=== PATIENT | female | born 1970 | race Caucasian/White ===

== ENCOUNTER 2022-07-07 15:53 | Outpatient (CLI) | payer OTHER, SELFPAY ==
[2022-07-07 16:22] LABS: Hematocrit 29.1 % (35.0-49.0); Hemoglobin 10.4 g/dL (12.0-15.0); Mean Corpuscular HGB Conc 35.7 g/dL (32.0-36.0); Platelet Count Result 218 K/mm3 (150-420); Red Blood Count 2.67 M/mm3 (4.20-5.40); Red Cell Distribution Width 16.5 % (11.6-14.4)
[2022-07-07 16:30] LABS: White Blood Count 24.9 K/mm3 (4.8-10.8)
[2022-07-07 16:49] LABS: Alanine Aminotransferase 43 U/L (14-59); Albumin Level 2.6 g/dL (3.4-5.0); Alkaline Phosphatase 385 U/L (46-116); Anion Gap 11 mmol/L (8-16); Aspartate Amino Transferase 131 U/L (15-37); Bilirubin Direct 13.7 mg/dL (0-0.2); Bilirubin,Total 16.4 mg/dL (0.00-1.00); Blood Urea Nitrogen 10 mg/dL (7-18); Calcium 7.5 mg/dL (8.5-10.1); Carbon Dioxide 26 mmol/L (21-32); Chloride 89 mmol/L (98-108); Estimated Glomerular Filt Rate > 60; Glucose 105 mg/dL (70-99); Lipase 123 U/L (73-393); Osmolality Calculated 261 mOsm/kg (285-295); Potassium 2.8 mmol/L (3.5-5.1); Sodium 126 mmol/L (136-145); Total Protein 7.6 g/dL (6.4-8.2)
[2022-07-07 16:53] LABS: Ammonia < 10 umol/L (11-32); Amylase 728 U/L (25-115); GGT > 690.0 U/L (5-55)
[2022-07-07 17:07] LABS: Band Neutrophils Percent 9 % (0-6); Basophils Absolute Manual 0.24 K/mm3 (0-0.1); Basophils Percent Manual 1 % (0-1); Eosinophils Absolute Manual 0.49 K/mm3 (0.02-0.5); Eosinophils Percent Manual 2 % (1-6); Lymphocytes Absolute Manual 0.99 K/mm3 (1.1-4.5); Lymphocytes Percent Manual 4 % (18-44); Metamyelocytes Percent 2 %; Monocytes Absolute Manual 1.24 K/mm3 (0.1-0.90); Monocytes Percent Manual 5 % (3-9); Myelocytes Percent 1 %; Neutrophils Absolute Manual 21.16 K/mm3 (1.7-7.2); Neutrophils Percent Manual 76 % (46-73); Platelet Estimate Adequate (Adequate); Total Cells Counted 100
[2022-07-07 19:23] LABS: Appearance Urine Clear (Clear); Bilirubin Urine 3+ (Negative); Blood Urine Negative (Negative); Glucose Urine UA Trace (Negative); Ketones Urine Trace (Negative); Leukocyte Esterase Ur 1+ (Negative); Nitrate Urine Negative (Negative); Protein Urine Trace (Negative); Specific Grav Ur <= 1.005 (1.010-1.020)
[2022-07-07 19:34] LABS: Add Urine Microscopic? YES; Color Urine Dark Orange (Yellow); RBC Urine 0-2 /hpf (0-2)
[2022-07-07 19:35] LABS: Bacteria Urine 4+ /hpf; Squamous Epithelial Cell Urine None seen /hpf (Few); WBC Urine 16-20 /hpf (0-3)
[2022-07-12 03:09] LABS: Hepatitis A Antibody IgM Nonreactive; Hepatitis B Core Antibody Nonreactive (Nonreactive); Hepatitis B Surface Antigen Nonreactive (Nonreactive); Hepatitis C Signal to Cutoff 0.04 ratio (<1.00); Hepatitis C Virus Antibody Nonreactive (Nonreactive)
== END 2022-07-07 15:54 | disposition home or self-care (01) ==
LOC: CHSLAB 15:57
PROVIDERS: PCP Family Medicine; Visit Provider Family Medicine
DX: K70.0 Alcoholic fatty liver (principal)
CPT/HCPCS: 36415; 80053; 80074; 81001; 82140; 82150; 82248; 82977; 83690; 85025

== ENCOUNTER 2022-07-08 03:37 | Inpatient (IN) | payer OTHER, SELFPAY ==
[2022-07-08] VITALS (14 sets, daily range): BP systolic 90–110; BP diastolic 50–79; PULSE 86–112; RESP 14–22; TEMP 36.6–36.8; O2SAT 97–100; BMI 25.4
--- NOTE | ~2022-07-08 | NM_ITS ---
EXAMINATION: NM hepatobiliary wo pharm DATE: 07/08/2022 18:53 INDICATION: Abnormal liver function tests. COMPARISON: Ultrasound 07/08/2022, CT 07/08/2022 TECHNIQUE: 3 mCi Tc-99m mebrofenin (Choletec) was administered intravenously. Scintigraphic images o f the abdomen were obtained for one hour. Delayed images were obtained at 4 hours. FINDINGS: There is decreased clearance of radiotracer from the blood pool. There is homogeneous trace r uptake by the liver. At 4 hours, most of the activity remains in the blood pool and liver. There is faint activity in the bowel. IMPRESSION: 1. Severe hepatocellular dysfunction. Patency of the cystic duct cannot be assessed. Reviewed, dictated and finalized at location A. RANCE COORDINATOR IMPRESSION: 1. Severe hepatocellular dysfunction. Patency of the cystic duct cannot be ass essed.
--- NOTE | ~2022-07-08 | US_ITS ---
EXAMINATION: US abdomen limited DATE: 07/08/2022 08:25 INDICATION: Cirrhosis and cholecystitis. TECHNIQUE: Multiple grayscale and Doppler ultrasound images of the abdomen were obtained. COMPARISON: None FINDINGS: The pancreatic head and body are normal in appearance. The pancreatic tail is not visualized. Small amount of perihepatic ascites. Liver surface nodularity consistent with cirrhosis. There is increased parenchymal echogenicity and coarsened echotexture consistent with diffuse hepatic steatosis. No esdras er lesion identified. No intrahepatic biliary duct dilation suspected. Portal venous flow was seen i n the hepatopetal, normal direction and has normal Doppler waveform. There is edematous wall thickeni ng of the partially decompressed gallbladder. There is a small amount of hypoechoic sludge in the dep endent gallbladder. No shadowing cholelithiasis. The common bile duct measures 3 mm diameter which is normal. Sonographic Perdue sign was reported as negative by the [place].Visualized right kidney demonstrates normal contour and echogenicity with no hydronephrosis. IMPRESSION: 1. Combination of cirrhosis and diffuse hepatic steatosis. 2. Gallbladder wall thickening with small amount of sludge but no dilation of the gallbladder, cholel ithiasis or sonographic Perdue sign to suggest acute cholecystitis in the wall thickening is most lik pelon related to liver disease. Reviewed, dictated and finalized at location A. CE SUPERINTENDENT IMPRESSION: 1. Combination of cirrhosis and diffuse hepatic steatosis. 2. Gallbladder wall thickening with small amount of sludge but no dilation of t he gallbladder, cholelithiasis or sonographic Perdue sign to suggest acute chol ecystitis in the wall thickening is most likely related to liver disease.
--- NOTE | ~2022-07-08 | CT_ITS ---
EXAMINATION: CT abdomen pelvis w con DATE: 07/08/2022 05:46 INDICATION: Abdominal pain TECHNIQUE: Computed tomography (CT) of the abdomen and pelvis was performed with 100 mL Omnipaque-350 intravenous contrast. Automated exposure control and iterative reconstruction technique were employe d. The dose-length product was 392.74 mGy-cm. COMPARISON: 10/12/2015 FINDINGS: Linear discoid atelectasis in the bilateral lower lobes and lingula. Heart size is normal. No pericar dial or pleural effusion. Heterogeneous enhancement/attenuation pattern of the liver with subtle live r is is nodularity consistent with combination of cirrhosis and hepatic steatosis. There is a recanal ized umbilical vein along with a small splenorenal and paraesophageal collaterals consistent with por fly venous hypertension. Small amount of ascites scattered throughout the abdomen and pelvis. Gallbla dder wall thickening with mucosal hyperemia but without dilation to more specifically suggest acute c holecystitis. There is some heterogeneous attenuation within the gallbladder suggests the presence of sludge or stones. Spleen, pancreas and bilateral adrenal glands are normal. 2.0 cm macroscopic fat a ttenuation right renal angiomyolipoma. Left kidney is normal. There are couple diverticula along the sigmoid colon without adjacent inflammatory change to suggest diverticulitis. Normal appendix. No bow el obstruction. Bladder, uterus and bilateral adnexa are unremarkable. No abscess or free intraperito ceci gas. Mild thoracic and lumbar spondylosis. IMPRESSION: 1. Combination of cirrhosis and diffuse hepatic steatosis with likely secondary to small amount of as cites and portal venous hypertension with prominent recanalized umbilical vein and small splenorenal and paraesophageal collaterals. 2. Thickening of the gallbladder with mucosal hyperemia and suggestion of possible internal sludge ve rsus gallstones. Differential would include acute cholecystitis although the gallbladder is not dilat ed and this could also relate either chronic cholecystitis or cirrhosis. Correlate for left-sided and could consider further evaluation with ultrasound and/or HIDA scan to assess for either gallstones o r patency of the cystic duct respectively. Reviewed, dictated and finalized at location A. SCOPY TECHNICIAN IMPRESSION: 1. Combination of cirrhosis and diffuse hepatic steatosis with likely secondary to small amount of ascites and portal venous hypertension with prominent recan alized umbilical vein and small splenorenal and paraesophageal collaterals. 2. Thickening of the gallbladder with mucosal hyperemia and suggestion of possi ble internal sludge versus gallstones. Differential would include acute cholecy stitis although the gallbladder is not dilated and this could also relate eithe r chronic cholecystitis or cirrhosis. Correlate for left-sided and could consid er further evaluation with ultrasound and/or HIDA scan to assess for either gal lstones or patency of the cystic duct respectively.
--- NOTE | ~2022-07-08 | XR_ITS ---
EXAMINATION: XR chest 2V DATE: 07/08/2022 07:44 INDICATION: Pneumonia TECHNIQUE: PA and lateral views of the chest were obtained. COMPARISON: None FINDINGS: Bandlike discoid atelectasis in the right lower lobe. Additional streaky opacities at the lingula whi ch would favor atelectasis although differential would include pneumonia. No pleural effusion or pneu mothorax. The cardiomediastinal silhouette is normal. Visualized bones and soft tissues are unremarka ble. IMPRESSION: 1. Discoid atelectasis in the left lower lobe with additional opacities in the lingula which could re present additional atelectasis and/or pneumonia. Reviewed, dictated and finalized at location A. GER CONSUMER INSIGHTS IMPRESSION: 1. Discoid atelectasis in the left lower lobe with additional opacities in the lingula which could represent additional atelectasis and/or pneumonia.
[2022-07-08 05:09] LABS: Hemoglobin 10.3 g/dL (12.0-15.0); Mean Corpuscular HGB Conc 35.5 g/dl (32-36); Mean Corpuscular Hemoglobin 38.7 pg (26-34); Mean Platelet Volume 10.5 fl (7.4-10.4); Platelet Count Result 231 k/mm3 (150-375); Red Blood Count 2.66 M/mm3 (4.2-5.4); Red Cell Distribution Width 16.9 % (11.5-14.5); White Blood Count 28.1 K/mm3 (4.5-10.0)
--- NOTE | 2022-07-08 05:17 | ECG_ITS ---
Measurements Intervals [place] Rate: 86 P: -12 AR: 128 QRS: -17 QRSD: 89 T: -2 QT: 381 QTc: 456 Interpretive Statements SINUS RHYTHM DELAYED PRECORDIAL R/S TRANSITION VOLTAGE CRITERIA FOR LVH BORDERLINE T WAVE ABNORMALITY- INFERIOR LEADS BASELINE ARTIFACT- I, III, AVL, V5 BORDERLINE ECG NO PREVIOUS ECG AVAILABLE FOR COMPARISON Electronically Signed On 07-08-2022 7:23:14 PAPER LATCHER by Abhijeet Acosta D.O.
--- NOTE | 2022-07-08 05:18 | ED.ABDPAIN ---
HPI - Abdominal Pain General Chief Complaint: Abdominal Pain Stated Complaint: abdominal pain Time Seen by Provider: 07/08/22 04:51 History of Present Illness HPI narrative: 51-year-old female presented to the emergency department for evaluation of jaundice and distended abdomen. Patient states approximately 5 days ago she began having a distended abdomen and approximately 3 days ago she began to scleral jaundice. Patient did have labs drawn as outpatient and patient was told to present to the emergency department for elevated white blood cell count. Patient states she has been having abdominal distention with intermittent generalized abdominal pain. Patient also reports diarrhea. Patient denies any prior history of gallbladder disease. Patient does report history of drinking alcohol daily but denies any prior history of pancreatitis or cirrhosis. Related Data Allergies Allergy/AdvReac Type Severity Reaction Status Date / Time No Known Allergies Allergy Verified 07/08/22 05:29 Review of Systems Review of Systems: CONSTITUTIONAL: Denies fever, chills, or sweats. EYES: Denies visual changes, redness, or discharge. ENT: Denies rhinorrhea, congestion, sore throat, or otalgia. CARDIOVASCULAR: Denies chest pain, palpitations, or edema. RESPIRATORY: Denies cough or dyspnea. GASTROINTESTINAL: See HPI GENITOURINARY: Denies dysuria or hematuria. SKIN: See HPI MUSCULOSKELETAL: Denies back pain, joint pain, or myalgia. NEUROLOGIC: Denies headache, numbness, or weakness. Exam Narrative: APPEARANCE: Well appearing, no pain, no distress, well-nourished. HEAD: normocephalic, atraumatic. EYES: Scleral icterus NOSE: Normal no drainage EARS:TMS clear with good light reflex. THROAT: Pharynx clear, no exudate. NECK: Supple. No adenopathy, no masses. RESPIRATORY: Airway patent, respirations nonlabored. Clear to auscultation bilaterally, no rales, rhonchi, wheezing. CARDIOVASCULAR: Regular rate and rhythm without murmurs rubs or gallops. ABDOMINAL: Soft, distended with diffuse tenderness to palpation MUSCULOSKELETAL: Moves all extremities. Strength/ROM intact, No edema, No calf tenderness. NEURO: Alert. Cranial nerves II through XII intact. Grossly intact SKIN: Jaundice Course Course Emergency Course: CT was concerning for cirrhosis versus acute cholecystitis. Patient was started on Zosyn while in the ED. Blood and urine cultures are pending. Case was discussed with both GI and surgery. Case was also discussed with hospitalist and patient was accepted for admission. Patient was updated on the results of the work-up and plan for admission. All question concerns were addressed. Vital Signs Vital signs: Vital Signs Temperature 98.2 F 07/08/22 03:38 Pulse Rate 112 H 07/08/22 03:38 Respiratory Rate 22 H 07/08/22 03:38 Blood Pressure 110/79 07/08/22 03:38 Pulse Oximetry 100 07/08/22 03:38 Oxygen Delivery Room Air 07/08/22 03:38 Temperature 98.2 F 07/08/22 03:38 Pulse Rate 93 07/08/22 06:35 Respiratory Rate 15 07/08/22 06:35 Blood Pressure 100/71 07/08/22 06:35 Pulse Oximetry 100 07/08/22 06:35 Oxygen Delivery Room Air 07/08/22 03:38 MDM - Abdominal Pain Lab Data Result diagrams: 07/08/22 04:59 07/08/22 04:59 Labs: Lab Results 07/08/22 07/08/22 07/08/22 Range/Units 04:59 04:59 04:59 WBC 28.1 H (4.5-10.0) K/mm3 RBC 2.66 L (4.2-5.4) M/mm3 Hgb 10.3 L (12.0-15.0) g/dL Hct 29.0 L (37.0-47.0) % MCV 109.0 H (80-100) fl MCH 38.7 H (26-34) pg MCHC 35.5 (32-36) g/dl RDW 16.9 H (11.5-14.5) % Plt Count 231 (150-375) k/mm3 MPV 10.5 H (7.4-10.4) fl Immature Gran % (Auto) Not Reportable Neut % (Auto) Not Reportable Lymph % (Auto) Not Reportable [place] % (Auto) Not Reportable Eos % (Auto) Not Reportable Baso % (Auto) Not Reportable Lymph # (Auto) Not Reportable [place] # (Auto) No
[2022-07-08 05:23] LABS: Add Urine Microscopic? YES; Appearance Urine Turbid (Clear); Bilirubin Urine 3+ (Negative); Blood Urine Trace-intact (Negative); Color Urine Brown (Yellow); Glucose Urine UA Negative (Negative); Ketones Urine Negative (Negative); Leukocyte Esterase Ur 3+ LEU/UL (Negative); Nitrate Urine Negative (Negative); Protein Urine Trace mg/dL (Negative); Specific Grav Ur <= 1.005 (1.001-1.035); Urobilinogen Urine 0.2 mg/dL (<2.0)
[2022-07-08 05:28] LABS: Alanine Aminotransferase 45 U/L (6-35); Albumin Level 3.5 g/dL (3.5-5.1); Alkaline Phosphatase 369 U/L (38-126); Anion Gap 15 mmol/L (8-16); Aspartate Amino Transferase 158 U/L (14-36); Bilirubin Direct 10.9 mg/dL (0-0.3); Bilirubin,Total 16.8 mg/dL (0.2-1.3); Blood Urea Nitrogen 10 mg/dL (7-17); Calcium 7.4 mg/dL (8.4-10.2); Carbon Dioxide 27 mmol/L (22-30); Chloride 85 mmol/L (98-107); Estimated CRCL calculation 90 ml/min; Estimated Glomerular Filt Rate > 60; Glucose 93 mg/dL (65-110); Lipase 101 U/L (23-300); Potassium 2.9 mmol/L (3.4-5.0); Sodium 127 mmol/L (137-145)
[2022-07-08 05:34] LABS: Bacteria Urine 4+ /hpf; Mucus Urine Rare /lpf; RBC Urine 0-2 /hpf (0-2); Squamous Epithelial Cell Urine Rare /hpf (Few); WBC Urine >75 /hpf
[2022-07-08] MEDS: POTASSIUM CHLORIDE 20 MEQ PACKET (FOR LIQUID) 40 MEQ PO (06:02)
[2022-07-08 06:09] LABS: Band Neutrophils Percent 39 % (0-6); Eosinophils Absolute Manual 0.28 K/mm3 (0.02-0.5); Eosinophils Percent Manual 1 % (0-4); Hypochromasia 1+ (NORMAL); Lymphocytes Absolute Manual 3.09 K/mm3 (1.1-4.5); Metamyelocytes Percent 5 %; Monocytes Absolute Manual 0.84 K/mm3 (0.1-0.90); Monocytes Percent Manual 3 % (3-9); Myelocytes Percent 3 %; Neutrophils Absolute Manual 21.63 K/mm3 (1.7-7.2); Neutrophils Percent Manual 38 % (46-73); Platelet Estimate Adequate (Adequate); Schistocytes None Seen (NORMAL); Total Cells Counted 100
[2022-07-08 06:10] LABS: Macrocytosis 2+ (NORMAL)
--- NOTE | 2022-07-08 10:30 | ADMGEN ---
This patient, Margaret Bonilla, was admitted to Medical Room 260-01. Patient/family oriented to hospital policies and general routines including ID bracelet, bed and alarms, visiting hours, pain management, procedures, bathroom and other care routines, personal items, smoking policy, room service/diet, and visiting hours. Information on how to activate the Rapid Response Team has been discussed. Patient/Family are encouraged to report perceived risks to care and to ask questions if they do not understand what they are told or what they should do.
[2022-07-08] MEDS: SODIUM CHLORIDE 0.9% IV 1,000 ML 125 ML IV CONT ×2 (11:20→21:41)
--- NOTE | 2022-07-08 12:39 | PM.IMHP ---
H&P: HPI History of Present Illness Date/Time: 07/08/22 12:39 Chief Complaint: Jaundice Narrative: This is a 51-year-old female patient who states that she drinks 2 glasses of rum and choose a day. She quit drinking this past Monday. The patient stated that about 4 days ago she quit drinking alcohol just cold turkey. She noticed this past Monday that she was jaundice to the whites of her eyes. She denies any discomfort to her abdomen. She denies having any previous diagnosis of cyst cirrhosis of the liver. The patient denies having any alcohol withdrawals. Although she has some minimal tremors to her hands. Her is at the bedside. She stated that her physician recently put her on folic acid and thiamin. However she denies taking any Librium. Her white count is 28.1 and yesterday it had been 24.9. Her H&H is 10.3 and 29.0. Her sodium is 127 now on yesterday was 126. Potassium 2.9 today 2.8 yesterday. Calcium is low at 7.4. Total bilirubin 16.8. Direct bilirubin 10.9. AST is 158 ALT is 45 alkaline phosphatase is 369. Her ammonia level was less than 10. She has 3+ urine bilirubin. Patient's urine appears to be infectious. Hepatitis panel is pending. Abdominal pelvis CT read as the following 1. Combination of cirrhosis and diffuse hepatic steatosis with likely secondary to small amount of ascites and portal venous hypertension with prominent recanalized umbilical vein and small splenorenal and paraesophageal collaterals. 2. Thickening of the gallbladder with mucosal hyperemia and suggestion of possible internal sludge versus gallstones. Differential would include acute cholecystitis although the gallbladder is not dilated and this could also relate either chronic cholecystitis or cirrhosis. Correlate for left-sided and could consider further evaluation with ultrasound and/or HIDA scan to assess for either gallstones or patency of the cystic duct respectively. Chest x-ray was read is discoid atelectasis in the left lower lobe with additional opacities in the lingular which could represent additional atelectasis and/or pneumonia. Abdominal ultrasound was read as combination cirrhosis and diffuse hepatic steatosis. Gallbladder wall thickening with small amount of sludge but no dilatation of the gallbladder, cholelithiasis or sonographic Perdue sign to suggest acute cholecystitis in the wall thickening is most likely related to liver disease. The patient was started on IV fluids and Zosyn and given potassium in the emergency room. Surgery and GI have been consulted. A HIDA scan has been ordered. The patient is NPO at this time and is feeling hungry. Patient is being admitted to observation status on the date of service of 07/08/2022. Review of Systems Review of Systems: See HPI All systems reviewed & are unremarkable except as noted in HPI and below Constitutional: Constitutional: Reports as per HPI and Reports no additional constitutional complaints Eyes: Eyes: Reports as per HPI and Reports no additional eye complaints ENT: Reports system reviewed and no additional complaints, except as documented and Reports Normal hearing present Cardiovascular: Cardiovascular: Reports no additional cardiovascular complaints Respiratory: Respiratory: Reports no additional respiratory complaints and Reports no additional respiratory complaints Gastrointestinal: Gastrointestinal: Reports as per HPI and Reports no additional gastrointestinal complaints Musculoskeletal: Musculoskeletal: Reports no additional musculoskeletal complaints Integumentary/Breasts: Skin/Breast: Reports system reviewed and no additional complaints, except as docu and Reports as per HPI Neurologic: Reports system reviewed and no additional complaints, except as documented, Reports as per HPI and Reports Normal hearing present Psychiatric: Psychiatric: Reports no additional psychiatric complaints and Reports as per HPI Endocrine: Endocrine: Reports no additional endocrin
--- NOTE | 2022-07-08 12:51 | PM.CNGS ---
Assessment and Plan Assessment and plan (1) Jaundice: Code(s): R17 - Unspecified jaundice Status: Acute Assessment and Plan: The patient has had further workup including a CT scan of the abdomen and pelvis and subsequently an ultrasound this morning. There were no stone seen on CT scan although there was some hyperemia of the gallbladder mucosa and pop and some distention of the gallbladder. On ultrasound however there was only a mild amount of sludge and there does not appear to be significant signs of acute inflammation. In view of the patient's elevated white count I would agree with starting antibiotics. ( Per Catrachito Rey and has been started) however at this time I am not planning any surgical intervention so if okay with primary service would suggest starting the patient on clear liquids and advancing to a low-fat diet as tolerated. The patient is not complaining of nausea at this time. Further workup with regard to her cirrhosis as per primary service and GI. I would probably hold ordering a HIDA scan at least for a while in view of its limitations in patients with high bilirubin. (2) Neutrophilic leukocytosis: Code(s): D72.9 - Disorder of white blood cells, unspecified Status: Acute Assessment and Plan: Unknown etiology possibilities are acute cholecystitis related to her cirrhosis and biliary sludge that is seen in small amounts on ultrasound. Also a possibility of pneumonia per her chest x-ray in view of her atelectasis probably related to her abdominal bloating and shallow respirations. Another possibility will be UTI in view of her urine results from the ER. However, on the latter it may be aguilar to repeat an urinalysis with a clean-catch specimen or a catheterization in order to confirm the findings since the patient does not have overt symptoms of a UTI. (3) AA (alcohol abuse): Code(s): F10.10 - Alcohol abuse, uncomplicated Status: Acute Assessment and Plan: Discussed briefly with patient and her was in the room during my interview. She has stopped drinking over the last 4-5 days. I did discuss with her thoroughly the effects of alcohol on her liver and especially in view of the signs that she may also have hepatic steatosis. I have encouraged cessation of alcohol use. History of Present Illness Consult details Consult date: 07/08/22 Reason for consult: abdominal pain Requesting physician: Bakari Vargas MD Narrative: This is a pleasant 51-year-old white female who presented to the emergency department your at [place] the morning of 07/08/2022 for evaluation of jaundice and distended abdomen.? Patient states approximately 5 days ago she began having a distended abdomen and approximately 3 days ago she began noticing scleral jaundice.? Patient did have labs drawn as outpatient and patient was told to present to the emergency department for elevated white blood cell count and Bilirubin.? Patient states she has been having abdominal distention with intermittent generalized abdominal pain.? at the time of my interview the patient denied abdominal pain. Patient also reports that she did have a bowel movement today but that she has had intermittent loose stools over the last several days.. Patient denies any prior history of gallbladder disease.? She also states she does not associated to abdominal cramping pain with fatty or spicy foods at this time. Patient does report history of drinking alcohol daily Until she stopped when the symptoms above began. She however denies any prior history of pancreatitis or cirrhosis. on further history the patient states she did go to her PCPs office yesterday for an exam and states that he suspected cirrhosis after their discussion and visit. He called her at 2:30 a.m. this morning with her abnormal labs asked her to go to the emergency room. With further questioning the patient states that she typically drinks soda and r
[2022-07-08] MEDS: PIPERACILLIN/TAZOBACTAM SOD 4.5 GM in SODIUM CHLORIDE 0.9% IV 100 ML 200 ML IVPB (17:41)
[2022-07-08 18:12] LABS: Glucose Point of Care 78 mg/dl (65-105)
[2022-07-08 20:38] LABS: Anion Gap 15 mmol/L (8-16); Blood Urea Nitrogen 11 mg/dL (7-17); Carbon Dioxide 24 mmol/L (22-30); Chloride 93 mmol/L (98-107); Estimated CRCL calculation 90 ml/min; Estimated Glomerular Filt Rate > 60; Glucose 71 mg/dL (65-110); Sodium 132 mmol/L (137-145)
[2022-07-08] MEDS: POTASSIUM CHLORIDE 20 MEQ TABLET 40 MEQ PO (21:40)
[2022-07-09] VITALS (10 sets, daily range): BP systolic 90–101; BP diastolic 60–69; PULSE 78–90; RESP 16–24; TEMP 36.5–36.6; O2SAT 96
[2022-07-09] MEDS: PIPERACILLIN/TAZOBACTAM SOD 4.5 GM in SODIUM CHLORIDE 0.9% IV 100 ML 200 ML IVPB ×5 (00:04→23:05)
[2022-07-09 00:16] LABS: Glucose Point of Care 79 mg/dl (65-105)
[2022-07-09 06:19] LABS: Hemoglobin 9.7 g/dL (12.0-15.0); Mean Corpuscular HGB Conc 34.6 g/dl (32-36); Mean Corpuscular Hemoglobin 38.5 pg (26-34); Mean Corpuscular Volume 111.1 fl (80-100); Mean Platelet Volume 10.1 fl (7.4-10.4); Platelet Count Result 228 k/mm3 (150-375); Red Blood Count 2.52 M/mm3 (4.2-5.4); Red Cell Distribution Width 17.6 % (11.5-14.5); White Blood Count 21.2 K/mm3 (4.5-10.0)
[2022-07-09 06:22] LABS: Glucose Point of Care 71 mg/dl (65-105)
[2022-07-09] MEDS: SODIUM CHLORIDE 0.9% IV 1,000 ML 125 ML IV CONT ×2 (06:22→16:09)
[2022-07-09 06:25] LABS: Ammonia 10 umol/L (9-30)
[2022-07-09 06:27] LABS: Lactic Acid Reflex 0.8 mmol/L (0.7-2.0)
[2022-07-09 06:38] LABS: Alanine Aminotransferase 46 U/L (6-35); Albumin Level 2.9 g/dL (3.5-5.1); Alkaline Phosphatase 321 U/L (38-126); Anion Gap 13 mmol/L (8-16); Aspartate Amino Transferase 146 U/L (14-36); Blood Urea Nitrogen 8 mg/dL (7-17); Calcium 6.7 mg/dL (8.4-10.2); Carbon Dioxide 22 mmol/L (22-30); Chloride 100 mmol/L (98-107); Estimated CRCL calculation 109 ml/min; Estimated Glomerular Filt Rate > 60; Glucose 73 mg/dL (65-110); Lactate Dehydrogenase 204 U/L (120-246); Lipase 80 U/L (23-300); Magnesium 0.9 mg/dL (1.6-2.3); Potassium 3.3 mmol/L (3.4-5.0); Sodium 135 mmol/L (137-145)
[2022-07-09 07:08] LABS: Band Neutrophils Percent 19 % (0-6); Eosinophils Absolute Manual 0.42 K/mm3 (0.02-0.5); Eosinophils Percent Manual 2 % (0-4); Lymphocytes Absolute Manual 0.63 K/mm3 (1.1-4.5); Metamyelocytes Percent 1 %; Monocytes Absolute Manual 1.06 K/mm3 (0.1-0.90); Monocytes Percent Manual 5 % (3-9); Neutrophils Absolute Manual 18.86 K/mm3 (1.7-7.2); Neutrophils Percent Manual 70 % (46-73); Platelet Estimate Adequate (Adequate); Schistocytes None Seen (NORMAL); Total Cells Counted 100
[2022-07-09] MEDS: MAGNESIUM SULFATE 3GM/D5W100ML 3 GM/100 ML BAG IVPB (08:12)
[2022-07-09] MEDS: THIAMINE HCL 200 MG/2 ML VIAL 100 MG IV PUSH (08:15)
[2022-07-09] MEDS: FOLIC ACID 1 MG/0.2 ML INJ IV PUSH (08:15)
[2022-07-09] MEDS: POTASSIUM CHLORIDE 20 MEQ TABLET PO (08:15)
[2022-07-09] MEDS: POTASSIUM CHLORIDE 20 MEQ PACKET (FOR LIQUID) 40 MEQ PO (08:47)
[2022-07-09 12:41] LABS: Glucose Point of Care 126 mg/dl (65-105)
--- NOTE | 2022-07-09 13:48 | P.PNIM_ITS ---
Progress Note: A&P Assessment and Plan (1) Elevated liver enzymes: Code(s): R74.8 - Abnormal levels of other serum enzymes Status: Acute Assessment and Plan: patient presented with jaundice. LFTs markedly elevated on presentation with total bilirubin 16.4, AST 131, alk phos 385 * concerning for acute alcoholic hepatitis * viral hepatitis panel is pending * CT abdomen showed cirrhosis and diffuse hepatic steatosis with small amount of ascites portal venous hypertension * appreciate gastroenterology consultation * continue to trend LFTs (2) Cirrhosis: Code(s): K74.60 - Unspecified cirrhosis of liver Status: Acute Assessment and Plan: as above * appreciate gastroenterology consultation (3) UTI (urinary tract infection): Code(s): N39.0 - Urinary tract infection, site not specified Status: Acute Assessment and Plan: urinalysis abnormal on presentation * preliminary urine culture with >100,000 E coli * continue IV Zosyn at this time. Plan to deescalate antibiotics tomorrow if continued improvement, pending urine cultures (4) Abnormal gallbladder ultrasound: Code(s): R93.2 - Abnormal findings on diagnostic imaging of liver and biliary tract Status: Acute Assessment and Plan: CT on presentation showed gallbladder wall thickening concerning for gallstones vs acute cholecystitis * follow-up right upper quadrant ultrasound again revealed gallbladder wall thickening with small amount of sludge but no dilation of gallbladder, cholelithiasis, or findings to suggest acute cholecystitis * HIDA scan was completed, however this is unlikely to be useful given markedly elevated bilirubin * patient does not have signs / symptoms to suggest acute cholecystitis * appreciate gastroenterology consultation * continue to advance diet as tolerated. Advance to low fat diet today (5) Leukocytosis: Code(s): D72.829 - Elevated white blood cell count, unspecified Status: Acute Assessment and Plan: white blood cell count markedly elevated at 28.1 * suspect infectious etiology. Most likely due to suspected acute alcoholic hepatitis. Additionally, may be related to acute UTI. Less likely to be due to acute cholecystitis (see above). Less likely consideration is pneumonia which is suggested on CXR, however given clinical picture, findings most likely due to atelectasis and do not suspect acute pneumonia. * continue with IV Zosyn which provides adequate coverage for UTI and gal lbladder * plan to deescalate antibiotics tomorrow if continued improvement in white blood cell count and clinical picture (6) AA (alcohol abuse): Code(s): F10.10 - Alcohol abuse, uncomplicated Status: Acute Assessment and Plan: last drink 6 days prior to presentation * continue CIWA protocol. Scores are 0 today. Patient is at low risk for alcohol withdrawal if it is accurate that her last drink was 6 days ago * continue thiamine and folic acid * Librium as needed for withdrawal symptoms * continued alcohol avoidance is imperative and patient has been educated (7) Electrolyte disturbance: Code(s): E87.8 - Other disorders of electrolyte and fluid balance, not elsewhere classified Status: Acute Assessment and Plan: magnesium is 0.9 Potassium is 3.3 * administer 3 g IV magnesium sulfate * continue with daily potassium supplement 40 mEq * monitor BMP Subjective Date/time seen: 07/09/22 13:48 Interva
--- NOTE | 2022-07-09 13:48 | PM.IMPN ---
Progress Note: A&P Assessment and Plan (1) Elevated liver enzymes: Code(s): R74.8 - Abnormal levels of other serum enzymes Status: Acute Assessment and Plan: patient presented with jaundice. LFTs markedly elevated on presentation with total bilirubin 16.4, AST 131, alk phos 385 concerning for acute alcoholic hepatitis viral hepatitis panel is pending CT abdomen showed cirrhosis and diffuse hepatic steatosis with small amount of ascites portal venous hypertension appreciate gastroenterology consultation continue to trend LFTs (2) Cirrhosis: Code(s): K74.60 - Unspecified cirrhosis of liver Status: Acute Assessment and Plan: as above appreciate gastroenterology consultation (3) UTI (urinary tract infection): Code(s): N39.0 - Urinary tract infection, site not specified Status: Acute Assessment and Plan: urinalysis abnormal on presentation preliminary urine culture with >100,000 E coli continue IV Zosyn at this time. Plan to deescalate antibiotics tomorrow if continued improvement, pending urine cultures (4) Abnormal gallbladder ultrasound: Code(s): R93.2 - Abnormal findings on diagnostic imaging of liver and biliary tract Status: Acute Assessment and Plan: CT on presentation showed gallbladder wall thickening concerning for gallstones vs acute cholecystitis follow-up right upper quadrant ultrasound again revealed gallbladder wall thickening with small amount of sludge but no dilation of gallbladder, cholelithiasis, or findings to suggest acute cholecystitis HIDA scan was completed, however this is unlikely to be useful given markedly elevated bilirubin patient does not have signs / symptoms to suggest acute cholecystitis appreciate gastroenterology consultation continue to advance diet as tolerated. Advance to low fat diet today (5) Leukocytosis: Code(s): D72.829 - Elevated white blood cell count, unspecified Status: Acute Assessment and Plan: white blood cell count markedly elevated at 28.1 suspect infectious etiology. Most likely due to suspected acute alcoholic hepatitis. Additionally, may be related to acute UTI. Less likely to be due to acute cholecystitis (see above). Less likely consideration is pneumonia which is suggested on CXR, however given clinical picture, findings most likely due to atelectasis and do not suspect acute pneumonia. continue with IV Zosyn which provides adequate coverage for UTI and gallbladder plan to deescalate antibiotics tomorrow if continued improvement in white blood cell count and clinical picture (6) AA (alcohol abuse): Code(s): F10.10 - Alcohol abuse, uncomplicated Status: Acute Assessment and Plan: last drink 6 days prior to presentation continue CIWA protocol. Scores are 0 today. Patient is at low risk for alcohol withdrawal if it is accurate that her last drink was 6 days ago continue thiamine and folic acid Librium as needed for withdrawal symptoms continued alcohol avoidance is imperative and patient has been educated (7) Electrolyte disturbance: Code(s): E87.8 - Other disorders of electrolyte and fluid balance, not elsewhere classified Status: Acute Assessment and Plan: magnesium is 0.9 Potassium is 3.3 administer 3 g IV magnesium sulfate continue with daily potassium supplement 40 mEq monitor BMP Subjective Date/time seen: 07/09/22 13:48 Interval history: Date of service: 07/09/2022 Margaret Bonilla is a 51-year-old female with a history of alcohol abuse who is seen in follow-up for cirrhosis and elevated liver enzymes. She states that she is starting to feel better today. She had abdominal cramping overnight but this has resolved this morning. She does endorse abdominal bloating. No abdominal pain. She had a bowel movement today that she states was greenish in color, soft,
[2022-07-09 14:23] LABS: Magnesium 1.8 mg/dL (1.6-2.3)
--- NOTE | 2022-07-09 14:41 | WPDGICN ---
Assessment and Plan Assessment and plan (1) Alcoholic hepatitis: Code(s): K70.10 - Alcoholic hepatitis without ascites Status: Acute Assessment and Plan: severe alcoholic hepatitis but can not calculate MELD or discriminant function- we need to order INR will complete full work up of other chronic liver disease but most likely is alcohol related, also found to have cirrhosis will start trental- if nausea will discontinue explained in detail that she has cirrhosis and potential future complications, she will need to quit altogether, AA meeting and probably also to establish with sap abap developer as outpatient EGD as outpatient to assess if varices (2) Cirrhosis: Code(s): K74.60 - Unspecified cirrhosis of liver Status: Acute Assessment and Plan: probably from alcohol will order blood work to rule out other conditions (3) AA (alcohol abuse): Code(s): F10.10 - Alcohol abuse, uncomplicated Status: Acute Assessment and Plan: thiamine, mvi encourage to eat (4) Elevated liver enzymes: Code(s): R74.8 - Abnormal levels of other serum enzymes Status: Acute (5) Leukocytosis: Code(s): D72.829 - Elevated white blood cell count, unspecified Status: Acute Assessment and Plan: probably from alcoholic hepatitis (6) Electrolyte disturbance: Code(s): E87.8 - Other disorders of electrolyte and fluid balance, not elsewhere classified Status: Acute Assessment and Plan: malnutrition and also risk of refeeding syndrome (7) Abnormal gallbladder ultrasound: Code(s): R93.2 - Abnormal findings on diagnostic imaging of liver and biliary tract Status: Acute Assessment and Plan: this is probably from cirrhosis and alcoholic hepatitis no obvious sign of acute cholecystitis (8) UTI (urinary tract infection): Code(s): N39.0 - Urinary tract infection, site not specified Status: Acute Assessment and Plan: on abx GI Consult Note Consult date/time: 07/09/22 14:41 Reason for consult: alcoholic hepatitis, new diagnosis cirrhosis HPI: Margaret Bonilla is a 51 year old female who came to the ER for evaluation of jaundice and distended abdomen.?She is an alcoholic for several years drinking daily at least 2 glass of run. Patient states approximately 5 days ago she began having a distended abdomen and approximately 3 days ago she began noticing scleral jaundice.? Patient did have labs drawn as outpatient and patient was told to present to the emergency department for elevated white blood cell count and bilirubin.?Her white count wsa elevated 28k, H&H is 10.3 and 29.0.? Sodium is 127, Potassium 2.9, Total bilirubin 16.8.? Direct bilirubin 10.9.? AST is 158 ALT is 45 alkaline phosphatase is 369.? Her ammonia level was less than 10.? She has 3+ urine bilirubin.? Patient's urine appears to be infectious and started on antibiotics. Hepatitis panel is pending.? Abdominal pelvis CT reviewed and showed- Combination of cirrhosis and diffuse hepatic steatosis with likely secondary to small amount of ascites and portal venous hypertension with prominent recanalized umbilical vein and small splenorenal and paraesophageal collaterals. Thickening of the gallbladder with mucosal hyperemia and suggestion of possible internal sludge versus gallstones. Differential would include acute cholecystitis although the gallbladder is not dilated and this could also relate either chronic cholecystitis or cirrhosis. She denies fever and unaware of previous liver disease however she has not seen a doctor in regular basis. Review of Systems Review of Systems: All systems reviewed & are unremarkable except as noted in HPI and below (HPI) Constitutional: Constitutional: Reports as per HPI, Denies chills and Denies fever(s) Eyes: Eyes: Reports no additional eye complaints ENT: Reports Normal hearing present and Denies dizziness Cardiovascular: Cardiovascular:
[2022-07-09] MEDS: HYDROmorphone HCL INJ (*CRX) 1 MG/ML SYR 0.5 MG IV PUSH (15:43)
[2022-07-09] MEDS: PENTOXIFYLLINE 400 MG TABCR PO (17:04)
[2022-07-09 19:12] LABS: Glucose Point of Care 102 mg/dl (65-105)
--- NOTE | 2022-07-09 20:43 | PM.PNGS ---
Progress Note: A&P Assessment and Plan (1) Alcoholic hepatitis: Code(s): K70.10 - Alcoholic hepatitis without ascites Status: Acute Assessment and Plan: This appears to be the main problem for the patient. (2) AA (alcohol abuse): Code(s): F10.10 - Alcohol abuse, uncomplicated Status: Acute (3) Abnormal gallbladder ultrasound: Code(s): R93.2 - Abnormal findings on diagnostic imaging of liver and biliary tract Status: Acute Assessment and Plan: The only abnormality may be related to cirrhosis and some thickening because of cirrhosis. There was exit Linda Thatch of a small amount of sludge which hopefully would clear his aunt's the patient stays on a low-fat diet. In view of her liver injury she has not a candidate for Actigall. at this time I would recommend the patient stay on a low-fat side of her diet. Agree with GI recommendations. For now will sign off since patient not a surgical candidate. (4) Jaundice: Code(s): R17 - Unspecified jaundice Status: Acute Assessment and Plan: Suspected to be secondary to #1. Above. Subjective Subjective Date/Time Seen: 07/09/22 18:43 Patient reports: no new complaints, feels better and tolerating liquids well Interval history: The patient states she has talked to the GI physician and they believe her problems are most likely related to the previous alcohol intake. She states she is willing to completely stop alcohol intake and try to let her liver recover. Review of Systems Review of Systems: All systems reviewed & are unremarkable except as noted in HPI and below Constitutional: Constitutional: Reports as per HPI, Denies chills and Denies fever(s) Cardiovascular: Cardiovascular: Denies chest pain and Denies dyspnea Respiratory: Respiratory: Reports no additional respiratory complaints and Denies dyspnea Gastrointestinal: Gastrointestinal: Reports as per HPI and Denies bloating Musculoskeletal: Musculoskeletal: Reports no additional musculoskeletal complaints Neurologic: Denies memory loss Psychiatric: Psychiatric: Denies anxiety and Denies memory loss Exam Eyes: Sclera: scleral abnormality bilateral ( significantly jaundiced) GI: Inspection: normal to inspection GI Palp: Yes Soft to palpation Auscultation: normal bowel sounds Other: skin of the abdomen significantly yellow. Objective Data Vital Signs Vital Signs: Vital Signs - 24 hr 07/08/22 23:21 07/09/22 00:00 07/09/22 04:00 Temperature Pulse Rate 88 80 Respiratory Rate Blood Pressure 107/70 Pulse Oximetry Oxygen Delivery 07/09/22 05:25 07/09/22 08:00 07/09/22 08:00 Temperature 36.5 C Pulse Rate 84 90 Respiratory Rate 16 Blood Pressure 90/60 L Pulse Oximetry 96 Oxygen Delivery Room Air 07/09/22 12:00 07/09/22 14:33 07/09/22 16:00 Temperature 36.5 C Pulse Rate 89 87 89 Respiratory Rate 24 H Blood Pressure 99/69 L Pulse Oximetry 96 Oxygen Delivery Intake/Output Intake/Output: Intake & Output 07/06/22 07/07/22 07/08/22 07/09/22 23:59 23:59 23:59 23:59 Intake Total 1150 4050 Output Total 300 650 Balance 850 3400 Meds/Results Medications: Active Medications Generic Name Dose Route Start Last Admin Trade Name Freq PRN Reason Stop Dose Admin Chlordiazepoxide HCl 25 mg 07/08/22 13:56 Chlordiazepoxide (*Crx) 25 Mg Capsule PO Q6H PRN Withdrawal Folic Acid 1 mg 07/09/22 09:00 07/09/22 08:15 Folic Acid 1 Mg/0.2 Ml Inj IV PUSH 1 mg QAM CYNDY Administration Hydromorphone HCl 0.5 mg 07/08/22 07:36 07/09/22 15:43 Hydromorphone Hcl Inj (*Crx) 1 Mg/Ml Syr IV PUSH 0.5 mg Q4H PRN Administration Pain Rated 7-10 Sodium Chloride 1,000 mls @ 75 mls/hr 07/08/22 07:40 07/09/22 16:09 Normal Saline Iv IV CONT 125 mls/hr .[id number] CYNDY Administration Piperacillin Sod/Tazobactam 100 mls @ 200 mls/hr 07/08/22 18:00
[2022-07-09 23:09] LABS: Glucose Point of Care 110 mg/dl (65-105)
[2022-07-10] VITALS (10 sets, daily range): BP systolic 100–108; BP diastolic 58–75; PULSE 79–107; RESP 16; TEMP 36.1–36.7; O2SAT 94–100
[2022-07-10] MEDS: SODIUM CHLORIDE 0.9% IV 1,000 ML 125 ML IV CONT (01:13)
[2022-07-10] MEDS: PIPERACILLIN/TAZOBACTAM SOD 4.5 GM in SODIUM CHLORIDE 0.9% IV 100 ML 200 ML IVPB ×2 (05:09→11:23)
[2022-07-10 05:29] LABS: Glucose Point of Care 93 mg/dl (65-105)
[2022-07-10 05:43] LABS: Basophils Percent Auto 0.1 % (0.2-1.2); Eosinophils Absolute Auto 0.5 K/mm3 (0-0.3); Eosinophils Percent Auto 2.3 % (0-4.4); Hematocrit 26.3 % (37.0-47.0); Hemoglobin 9.3 g/dL (12.0-15.0); Immature Granulocyte Absolute 1.08 K/mm3 (0.00-0.031); Immature Granulocyte Percent A 4.8 % (0-0.5); Lymphocytes Absolute Auto 1.04 K/mm3 (0.9-3.2); Lymphocytes Percent Auto 4.7 % (18.3-44.2); Mean Corpuscular HGB Conc 35.4 g/dl (32-36); Mean Corpuscular Hemoglobin 39.2 pg (26-34); Mean Platelet Volume 9.8 fl (7.4-10.4); Monocytes Absolute Auto 2.1 K/mm3 (0.1-0.6); Monocytes Percent Auto 9.2 % (2.6-8.5); Neutrophils Absolute Auto 17.6 K/mm3 (1.3-6.7); Neutrophils Percent Auto 78.9 % (45.5-73.1); Nucleated Red Blood Cells Perc 0.1 % (0.0-0.2); Platelet Count Result 258 k/mm3 (150-375); Red Blood Count 2.37 M/mm3 (4.2-5.4); Red Cell Distribution Width 17.9 % (11.5-14.5); White Blood Count 22.4 K/mm3 (4.5-10.0)
[2022-07-10 05:56] LABS: Alanine Aminotransferase 42 U/L (6-35); Albumin Level 2.6 g/dL (3.5-5.1); Alkaline Phosphatase 287 U/L (38-126); Anion Gap 13 mmol/L (8-16); Aspartate Amino Transferase 137 U/L (14-36); Bilirubin,Total 15.3 mg/dL (0.2-1.3); Blood Urea Nitrogen 4 mg/dL (7-17); Calcium 6.1 mg/dL (8.4-10.2); Carbon Dioxide 20 mmol/L (22-30); Chloride 101 mmol/L (98-107); Estimated CRCL calculation 109 ml/min; Estimated Glomerular Filt Rate > 60; Glucose 89 mg/dL (65-110); Magnesium 1.5 mg/dL (1.6-2.3); Potassium 2.9 mmol/L (3.4-5.0); Sodium 134 mmol/L (137-145)
[2022-07-10 06:01] LABS: INR 2.8; Prothrombin Time 28.8 Seconds (11.1-14.7)
[2022-07-10 06:42] LABS: Anisocytosis 1+ (NORMAL); Platelet Estimate Adequate (Adequate); Target Cells 1+ (NORMAL)
[2022-07-10 07:44] LABS: Schistocytes None Seen (NORMAL)
[2022-07-10] MEDS: MAGNESIUM SULFATE 3GM/D5W100ML 3 GM/100 ML BAG IVPB (08:32)
[2022-07-10] MEDS: CALCIUM CARBONATE (OSCAL) 500 MG TABLET PO ×2 (08:34→16:29)
[2022-07-10] MEDS: THIAMINE HCL 200 MG/2 ML VIAL 100 MG IV PUSH (08:34)
[2022-07-10] MEDS: FOLIC ACID 1 MG/0.2 ML INJ IV PUSH (08:35)
[2022-07-10] MEDS: POTASSIUM CHLORIDE 20 MEQ PACKET (FOR LIQUID) 40 MEQ PO (08:35)
[2022-07-10] MEDS: PENTOXIFYLLINE 400 MG TABCR PO ×3 (08:35→16:29)
[2022-07-10 08:45] LABS: Phosphorus 2.5 mg/dL (2.5-4.5)
[2022-07-10] MEDS: POTASSIUM CHLORIDE INJ 40 MEQ in SODIUM CHLORIDE 0.9% IV 500 ML 130 MEQ IVPB (09:44)
[2022-07-10] MEDS: HYDROmorphone HCL INJ (*CRX) 1 MG/ML SYR 0.5 MG IV PUSH (09:55)
[2022-07-10 11:40] LABS: Glucose Point of Care 91 mg/dl (65-105)
--- NOTE | 2022-07-10 12:56 | WPDGIPROGNO ---
Progress Note: A&P Assessment and Plan (1) Alcoholic hepatitis: Code(s): K70.10 - Alcoholic hepatitis without ascites Status: Acute Assessment and Plan: severe alcoholic hepatitis- DF 83 and meld 19- risk for complications and mortality encourage to eat and added nutriotinal supplement stared on trental work up to rule out other chronic liver conditions pending, most likely alcohol related will need to follow-up with hepatology (2) Cirrhosis: Code(s): K74.60 - Unspecified cirrhosis of liver Status: Acute Assessment and Plan: egd as outpatient to assess if varices, etc (3) Neutrophilic leukocytosis: Code(s): D72.9 - Disorder of white blood cells, unspecified Status: Acute Assessment and Plan: probably from etoh hepatitis empirically on abx (4) Jaundice: Code(s): R17 - Unspecified jaundice Status: Acute (5) Elevated liver enzymes: Code(s): R74.8 - Abnormal levels of other serum enzymes Status: Acute Assessment and Plan: monitor hepatitis panel pending (6) Bloating: Code(s): R14.0 - Abdominal distension (gaseous) Status: Acute Subjective Date/time seen: 07/10/22 12:56 Interval history: feeling bloated but otherwise she is eating and denies nausea Review of Systems Review of Systems: All systems reviewed & are unremarkable except as noted in HPI and below Exam Const: General: comfortable HENMT: Face/Nose/Sinus: Normal nares present Eyes: Other: icteric sclerae Neck: Neck: supple Resp: Auscultation: clear to auscultation bilaterally Cardio: Rate: regular rate GI: Inspection: distended GI Palp: Yes Soft to palpation and No Guarding due to palpation present (GI) Auscultation: normal bowel sounds Skin: Other: jaundice Neuro: Speech: normal speech Motor exam (neuro): 5/5 motor strength present throughout Extrem: General: normal to inspection Psych: Affect: normal affect Objective Data Vital Signs Vital Signs: Vital Signs - 24 hr 07/09/22 14:33 07/09/22 16:00 07/09/22 20:48 Temperature 97.7 F 98 F Pulse Rate 87 89 81 Respiratory Rate 24 H 20 Blood Pressure 99/69 L 101/60 Pulse Oximetry 96 96 Oxygen Delivery 07/09/22 20:00 07/09/22 20:20 07/10/22 00:00 Temperature Pulse Rate 78 87 Respiratory Rate Blood Pressure 101/60 Pulse Oximetry Oxygen Delivery 07/10/22 00:00 07/10/22 04:00 07/10/22 04:00 Temperature Pulse Rate 104 H Respiratory Rate Blood Pressure 101/60 101/60 Pulse Oximetry Oxygen Delivery 07/10/22 05:37 07/10/22 07:48 07/10/22 08:00 Temperature 98.1 F Pulse Rate 90 107 H Respiratory Rate 16 Blood Pressure 101/58 L Pulse Oximetry 98 Oxygen Delivery Room Air Intake/Output Intake/Output: Intake & Output 07/07/22 07/08/22 07/09/22 07/10/22 23:59 23:59 23:59 23:59 Intake Total 1150 4350 1960 Output Total 300 650 650 Balance 850 3700 1310 Meds/Results Medications: Active Medications Generic Name Dose Route Start Last Admin Trade Name Freq PRN Reason Stop Dose Admin Calcium Carbonate 500 mg 07/10/22 08:00 07/10/22 08:34 Calcium Carbonate (Oscal) 500 Mg Tablet PO 500 mg BIDWM CYNDY Administration Chlordiazepoxide HCl 25 mg 07/08/22 13:56 Chlordiazepoxide (*Crx) 25 Mg Capsule PO Q6H PRN Withdrawal Folic Acid 1 mg 07/09/22 09:00 07/10/22 08:35 Folic Acid 1 Mg/0.2 Ml Inj IV PUSH 1 mg QAM CYNDY Administration Hydromorphone HCl 0.5 mg 07/08/22 07:36 07/10/22 09:55 Hydromorphone Hcl Inj (*Crx) 1 Mg/Ml Syr IV PUSH 0.5 mg Q4H PRN Administration Pain Rated 7-10 Piperacillin Sod/Tazobactam 100 mls @ 200 mls/hr 07/08/22 18:00 07/10/22 11:23 Sod 4.5 gm/ Sodium Chloride IVPB 200 mls/hr Q6HR CYNDY Administration Lorazepam 2 mg 07/08/22 13:56 Lorazepam Inj (*Crx) 2 Mg/Ml Vial IV PUSH Q4H PRN Withdrawal Ondanset
--- NOTE | 2022-07-10 15:29 | P.PNIM_ITS ---
Progress Note: A&P Assessment and Plan (1) Alcoholic hepatitis: Code(s): K70.10 - Alcoholic hepatitis without ascites Status: Acute Assessment and Plan: Findings consistent with alcoholic hepatitis. Meld score is 19. * Continue pentoxifylline per GI recommendations. * She will need referral to hepatology as an outpatient. (2) Elevated liver enzymes: Code(s): R74.8 - Abnormal levels of other serum enzymes Status: Acute Assessment and Plan: patient presented with jaundice. LFTs markedly elevated on presentation with total bilirubin 16.4, AST 131, alk phos 385 * secondary to acute alcoholic hepatitis * viral hepatitis panel is pending * CT abdomen showed cirrhosis and diffuse hepatic steatosis with small amount of ascites and portal venous hypertension * appreciate gastroenterology consultation * continue to trend LFTs (3) Cirrhosis: Code(s): K74.60 - Unspecified cirrhosis of liver Status: Acute Assessment and Plan: as above * appreciate gastroenterology consultation (4) UTI (urinary tract infection): Code(s): N39.0 - Urinary tract infection, site not specified Status: Acute Assessment and Plan: urinalysis abnormal on presentation * urine culture with >100,000 E coli * Stop Zosyn. Transition to ceftriaxone (5) Abnormal gallbladder ultrasound: Code(s): R93.2 - Abnormal findings on diagnostic imaging of liver and biliary tract Status: Acute Assessment and Plan: CT on presentation showed gallbladder wall thickening concerning for gallstones vs acute cholecystitis * follow-up right upper quadrant ultrasound again revealed gallbladder wall thickening with small amount of sludge but no dilation of gallbladder, cholelithiasis, or findings to suggest acute cholecystitis * HIDA scan was completed, however this is unlikely to be useful given markedly elevated bilirubin * patient does not have signs / symptoms to suggest acute cholecystitis * seen in consultation by general surgery. Findings not felt to be consistent with acute cholecystitis and no plans for further evaluation/intervention * continue low fat diet (6) Leukocytosis: Code(s): D72.829 - Elevated white blood cell count, unspecified Status: Acute Assessment and Plan: white blood cell count markedly elevated at 28.1 * suspect infectious etiology. Most likely due to suspected acute alcoholic hepatitis. Additionally, may be related to acute UTI. Less likely consideration is pneumonia which is suggested on CXR, however given clinical picture, findings most likely due to atelectasis and do not suspect pneumonia. * Zosyn stopped, transition to Ceftriaxone (7) AA (alcohol abuse): Code(s): F10.10 - Alcohol abuse, uncomplicated Status: Acute Assessment and Plan: last drink 6 days prior to presentation * continue CIWA protocol. Scores are 0 today. Patient is at low risk for alcohol withdrawal given duration since last drink * continue thiamine and folic acid * Librium as needed for withdrawal symptoms * continued alcohol avoidance is imperative and patient has been educated (8) Electrolyte disturbance: Code(s): E87.8 - Other disorders of electrolyte and fluid balance, not elsewhere classified Status: Acute Assessment and Plan: magnesium is 1.5 Potassium is 2.9. Calcium is 7.6 (corrected for hypoalbunemia) * administer 3 g IV magnesium sulfate and 40 mEq IV KCl * continue with daily potass
--- NOTE | 2022-07-10 15:29 | PM.IMPN ---
Progress Note: A&P Assessment and Plan (1) Alcoholic hepatitis: Code(s): K70.10 - Alcoholic hepatitis without ascites Status: Acute Assessment and Plan: Findings consistent with alcoholic hepatitis. Meld score is 19. Continue pentoxifylline per GI recommendations. She will need referral to hepatology as an outpatient. (2) Elevated liver enzymes: Code(s): R74.8 - Abnormal levels of other serum enzymes Status: Acute Assessment and Plan: patient presented with jaundice. LFTs markedly elevated on presentation with total bilirubin 16.4, AST 131, alk phos 385 secondary to acute alcoholic hepatitis viral hepatitis panel is pending CT abdomen showed cirrhosis and diffuse hepatic steatosis with small amount of ascites and portal venous hypertension appreciate gastroenterology consultation continue to trend LFTs (3) Cirrhosis: Code(s): K74.60 - Unspecified cirrhosis of liver Status: Acute Assessment and Plan: as above appreciate gastroenterology consultation (4) UTI (urinary tract infection): Code(s): N39.0 - Urinary tract infection, site not specified Status: Acute Assessment and Plan: urinalysis abnormal on presentation urine culture with >100,000 E coli Stop Zosyn. Transition to ceftriaxone (5) Abnormal gallbladder ultrasound: Code(s): R93.2 - Abnormal findings on diagnostic imaging of liver and biliary tract Status: Acute Assessment and Plan: CT on presentation showed gallbladder wall thickening concerning for gallstones vs acute cholecystitis follow-up right upper quadrant ultrasound again revealed gallbladder wall thickening with small amount of sludge but no dilation of gallbladder, cholelithiasis, or findings to suggest acute cholecystitis HIDA scan was completed, however this is unlikely to be useful given markedly elevated bilirubin patient does not have signs / symptoms to suggest acute cholecystitis seen in consultation by general surgery. Findings not felt to be consistent with acute cholecystitis and no plans for further evaluation/intervention continue low fat diet (6) Leukocytosis: Code(s): D72.829 - Elevated white blood cell count, unspecified Status: Acute Assessment and Plan: white blood cell count markedly elevated at 28.1 suspect infectious etiology. Most likely due to suspected acute alcoholic hepatitis. Additionally, may be related to acute UTI. Less likely consideration is pneumonia which is suggested on CXR, however given clinical picture, findings most likely due to atelectasis and do not suspect pneumonia. Zosyn stopped, transition to Ceftriaxone (7) AA (alcohol abuse): Code(s): F10.10 - Alcohol abuse, uncomplicated Status: Acute Assessment and Plan: last drink 6 days prior to presentation continue CIWA protocol. Scores are 0 today. Patient is at low risk for alcohol withdrawal given duration since last drink continue thiamine and folic acid Librium as needed for withdrawal symptoms continued alcohol avoidance is imperative and patient has been educated (8) Electrolyte disturbance: Code(s): E87.8 - Other disorders of electrolyte and fluid balance, not elsewhere classified Status: Acute Assessment and Plan: magnesium is 1.5 Potassium is 2.9. Calcium is 7.6 (corrected for hypoalbunemia) administer 3 g IV magnesium sulfate and 40 mEq IV KCl continue with daily potassium supplement 40 mEq begin Oscal 500 mg BID monitor BMP Subjective Date/time seen: 07/10/22 15:29 Interval history: Date of service: 07/10/2022 Margaret Bonilla is a 51-year-old female with a history of alcohol abuse who is seen in follow-up for cirrhosis and elevated liver enzymes. She is feeling well today. Her only complaint is rather severe abdominal bloating that she states is worse today. She rat
[2022-07-10] MEDS: ONDANSETRON INJ 4 MG/2 ML VIAL IV PUSH (16:39)
[2022-07-10 19:35] LABS: Glucose Point of Care 116 mg/dl (65-105)
[2022-07-10 23:03] LABS: Glucose Point of Care 100 mg/dl (65-105)
[2022-07-11] VITALS (10 sets, daily range): BP systolic 96–106; BP diastolic 55–68; PULSE 77–97; RESP 18–20; TEMP 36.5–37.2; O2SAT 96–97
[2022-07-11 05:54] LABS: Glucose Point of Care 107 mg/dl (65-105)
[2022-07-11 05:54] LABS: Glucose Point of Care 69 mg/dl (65-105)
[2022-07-11 06:44] LABS: Basophils Percent Auto 0.1 % (0.2-1.2); Eosinophils Absolute Auto 0.5 K/mm3 (0-0.3); Eosinophils Percent Auto 2.1 % (0-4.4); Hematocrit 27.5 % (37.0-47.0); Hemoglobin 9.7 g/dL (12.0-15.0); Immature Granulocyte Absolute 1.02 K/mm3 (0.00-0.031); Immature Granulocyte Percent A 4.4 % (0-0.5); Lymphocytes Absolute Auto 1.42 K/mm3 (0.9-3.2); Lymphocytes Percent Auto 6.1 % (18.3-44.2); Mean Corpuscular HGB Conc 35.3 g/dl (32-36); Mean Corpuscular Hemoglobin 38.3 pg (26-34); Mean Corpuscular Volume 108.7 fl (80-100); Mean Platelet Volume 9.8 fl (7.4-10.4); Monocytes Absolute Auto 1.8 K/mm3 (0.1-0.6); Monocytes Percent Auto 7.7 % (2.6-8.5); Neutrophils Absolute Auto 18.6 K/mm3 (1.3-6.7); Neutrophils Percent Auto 79.6 % (45.5-73.1); Nucleated Red Blood Cells Perc 0.2 % (0.0-0.2); Platelet Count Result 319 k/mm3 (150-375); Red Blood Count 2.53 M/mm3 (4.2-5.4); White Blood Count 23.4 K/mm3 (4.5-10.0)
[2022-07-11 07:33] LABS: Alanine Aminotransferase 55 U/L (6-35); Albumin Level 2.7 g/dL (3.5-5.1); Alkaline Phosphatase 322 U/L (38-126); Anion Gap 9 mmol/L (8-16); Aspartate Amino Transferase 164 U/L (14-36); Bilirubin,Total 16.8 mg/dL (0.2-1.3); Blood Urea Nitrogen 3 mg/dL (7-17); Calcium 6.6 mg/dL (8.4-10.2); Carbon Dioxide 21 mmol/L (22-30); Chloride 103 mmol/L (98-107); Estimated CRCL calculation 109 ml/min; Estimated Glomerular Filt Rate > 60; Glucose 80 mg/dL (65-110); Phosphorus 1.8 mg/dL (2.5-4.5); Potassium 3.1 mmol/L (3.4-5.0); Sodium 133 mmol/L (137-145)
[2022-07-11] MEDS: FOLIC ACID 1 MG/0.2 ML INJ IV PUSH (08:42)
[2022-07-11] MEDS: PENTOXIFYLLINE 400 MG TABCR PO ×3 (08:42→17:42)
[2022-07-11] MEDS: CALCIUM CARBONATE (OSCAL) 500 MG TABLET PO ×2 (08:42→17:42)
[2022-07-11] MEDS: VITAMIN B COMPLEX CAPSULE 1 CAP PO ×3 (08:42→17:42)
[2022-07-11] MEDS: POTASSIUM/PHOSPHORUS/SODIUM 1.5 GM PACKET 1 PACKET PO ×4 (08:42→19:45)
[2022-07-11] MEDS: POTASSIUM CHLORIDE 20 MEQ PACKET (FOR LIQUID) 40 MEQ PO (08:42)
[2022-07-11] MEDS: MULTIVITAMINS THERAPEUTIC TAB (*BKC) 1 TABLET PO (08:42)
[2022-07-11] MEDS: THIAMINE HCL 100 MG TABLET PO ×2 (08:42→17:42)
[2022-07-11] MEDS: CALCIUM GLUC 1,000 MG/NS 50 ML 1,000 MG/50 ML BAG 100 MG IVPB (08:43)
[2022-07-11] MEDS: THIAMINE HCL 200 MG/2 ML VIAL 100 MG IV PUSH (08:43)
[2022-07-11 09:00] LABS: Platelet Estimate Adequate (Adequate)
[2022-07-11 09:01] LABS: Anisocytosis 1+ (NORMAL); Target Cells 1+ (NORMAL)
[2022-07-11 10:38] LABS: Schistocytes None Seen (NORMAL)
[2022-07-11 12:21] LABS: Glucose Point of Care 113 mg/dl (65-105)
[2022-07-11] MEDS: HYDROmorphone HCL INJ (*CRX) 1 MG/ML SYR 0.5 MG IV PUSH ×2 (12:35→19:45)
[2022-07-11] MEDS: ONDANSETRON INJ 4 MG/2 ML VIAL IV PUSH (12:35)
--- NOTE | 2022-07-11 15:46 | P.PNIM_ITS ---
Progress Note: A&P Assessment and Plan (1) Alcoholic hepatitis: Code(s): K70.10 - Alcoholic hepatitis without ascites Status: Acute Assessment and Plan: Findings consistent with alcoholic hepatitis. Meld score is 19. * Continue pentoxifylline per GI recommendations. * She will need referral to hepatology as an outpatient. (2) Elevated liver enzymes: Code(s): R74.8 - Abnormal levels of other serum enzymes Status: Acute Assessment and Plan: Patient presented with jaundice. LFTs markedly elevated on presentation with total bilirubin 16.4, AST 131, alk phos 385 * secondary to acute alcoholic hepatitis * viral hepatitis panel is still pending * CT of the abdomen showed cirrhosis and diffuse hepatic steatosis with small amount of ascites and portal venous hypertension * appreciate gastroenterology consultation * continue to trend LFTs. Total bilirubin increased to 16.8 today (3) Cirrhosis: Code(s): K74.60 - Unspecified cirrhosis of liver Status: Acute Assessment and Plan: as above * appreciate gastroenterology consultation (4) UTI (urinary tract infection): Code(s): N39.0 - Urinary tract infection, site not specified Status: Acute Assessment and Plan: urinalysis abnormal on presentation * urine culture with >100,000 E coli * continue IV ceftriaxone * blood cultures pending (5) Abnormal gallbladder ultrasound: Code(s): R93.2 - Abnormal findings on diagnostic imaging of liver and biliary tract Status: Acute Assessment and Plan: CT on presentation showed gallbladder wall thickening concerning for gallstones vs acute cholecystitis * follow-up right upper quadrant ultrasound again revealed gallbladder wall thickening with small amount of sludge but no dilation of gallbladder, cholelithiasis, or findings to suggest acute cholecystitis * HIDA scan was completed, however unlikely to be useful given markedly elevated bilirubin * patient does not have signs / symptoms to suggest acute cholecystitis * seen in consultation by general surgery. Findings not felt to be consistent with acute cholecystitis and no plans for further evaluation/intervention * continue low fat diet (6) Leukocytosis: Code(s): D72.829 - Elevated white blood cell count, unspecified Status: Acute Assessment and Plan: white blood cell count markedly elevated at 23.4 * Most likely due to suspected acute alcoholic hepatitis. Additionally, may be related to acute UTI. Less likely consideration is pneumonia which is suggested on CXR, however given clinical picture, findings most likely due to atelectasis and do not suspect pneumonia. * Zosyn stopped, transition to Ceftriaxone (7) AA (alcohol abuse): Code(s): F10.10 - Alcohol abuse, uncomplicated Status: Acute Assessment and Plan: last drink 6 days prior to presentation * continue CIWA protocol. Scores are 0 today. Patient is at low risk for alcohol withdrawal given duration since last drink * continue thiamine and folic acid * Librium as needed for withdrawal symptoms * continued alcohol avoidance is imperative and patient has been educated (8) Electrolyte disturbance: Code(s): E87.8 - Other disorders of electrolyte and fluid balance, not elsewhere classified Status: Acute Assessment and Plan: several electrolyte abnormalities. May be related to refeeding syndrome * potassium 3.1. Administer 40 mEq p.o. KCl * magnesium levels
--- NOTE | 2022-07-11 15:46 | PM.IMPN ---
Progress Note: A&P Assessment and Plan (1) Alcoholic hepatitis: Code(s): K70.10 - Alcoholic hepatitis without ascites Status: Acute Assessment and Plan: Findings consistent with alcoholic hepatitis. Meld score is 19. Continue pentoxifylline per GI recommendations. She will need referral to hepatology as an outpatient. (2) Elevated liver enzymes: Code(s): R74.8 - Abnormal levels of other serum enzymes Status: Acute Assessment and Plan: Patient presented with jaundice. LFTs markedly elevated on presentation with total bilirubin 16.4, AST 131, alk phos 385 secondary to acute alcoholic hepatitis viral hepatitis panel is still pending CT of the abdomen showed cirrhosis and diffuse hepatic steatosis with small amount of ascites and portal venous hypertension appreciate gastroenterology consultation continue to trend LFTs. Total bilirubin increased to 16.8 today (3) Cirrhosis: Code(s): K74.60 - Unspecified cirrhosis of liver Status: Acute Assessment and Plan: as above appreciate gastroenterology consultation (4) UTI (urinary tract infection): Code(s): N39.0 - Urinary tract infection, site not specified Status: Acute Assessment and Plan: urinalysis abnormal on presentation urine culture with >100,000 E coli continue IV ceftriaxone blood cultures pending (5) Abnormal gallbladder ultrasound: Code(s): R93.2 - Abnormal findings on diagnostic imaging of liver and biliary tract Status: Acute Assessment and Plan: CT on presentation showed gallbladder wall thickening concerning for gallstones vs acute cholecystitis follow-up right upper quadrant ultrasound again revealed gallbladder wall thickening with small amount of sludge but no dilation of gallbladder, cholelithiasis, or findings to suggest acute cholecystitis HIDA scan was completed, however unlikely to be useful given markedly elevated bilirubin patient does not have signs / symptoms to suggest acute cholecystitis seen in consultation by general surgery. Findings not felt to be consistent with acute cholecystitis and no plans for further evaluation/intervention continue low fat diet (6) Leukocytosis: Code(s): D72.829 - Elevated white blood cell count, unspecified Status: Acute Assessment and Plan: white blood cell count markedly elevated at 23.4 Most likely due to suspected acute alcoholic hepatitis. Additionally, may be related to acute UTI. Less likely consideration is pneumonia which is suggested on CXR, however given clinical picture, findings most likely due to atelectasis and do not suspect pneumonia. Zosyn stopped, transition to Ceftriaxone (7) AA (alcohol abuse): Code(s): F10.10 - Alcohol abuse, uncomplicated Status: Acute Assessment and Plan: last drink 6 days prior to presentation continue CIWA protocol. Scores are 0 today. Patient is at low risk for alcohol withdrawal given duration since last drink continue thiamine and folic acid Librium as needed for withdrawal symptoms continued alcohol avoidance is imperative and patient has been educated (8) Electrolyte disturbance: Code(s): E87.8 - Other disorders of electrolyte and fluid balance, not elsewhere classified Status: Acute Assessment and Plan: several electrolyte abnormalities. May be related to refeeding syndrome potassium 3.1. Administer 40 mEq p.o. KCl magnesium levels normalized with supplementation calcium is 6.6 (7.7 corrected for hypoalbuminemia). Give 1 g IV Calcium gluconate. Continue Oscal 500 mg BID phos is 1.8. 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
--- NOTE | 2022-07-11 16:32 | WPDGIPROGNO ---
Progress Note: A&P Assessment and Plan (1) Alcoholic hepatitis: Code(s): K70.10 - Alcoholic hepatitis without ascites Status: Acute Assessment and Plan: severe alcoholic hepatitis- DF 83 and meld 19- risk for complications and mortality she is eating and also on nutritional supplement, thiamine, mvi started on trental work up to rule out other chronic liver conditions pending, most likely alcohol related liver enzymes high but stable, probably go home tomorrow and will need to get established with hepatology and stop drinking altogether (2) Cirrhosis: Code(s): K74.60 - Unspecified cirrhosis of liver Status: Acute Assessment and Plan: we can schedule egd as outpatient to assess if varices, etc (3) Neutrophilic leukocytosis: Code(s): D72.9 - Disorder of white blood cells, unspecified Status: Acute Assessment and Plan: probably from etoh hepatitis treated for uti abdominal exam benign (4) Jaundice: Code(s): R17 - Unspecified jaundice Status: Acute Assessment and Plan: unchanged (5) Elevated liver enzymes: Code(s): R74.8 - Abnormal levels of other serum enzymes Status: Acute Assessment and Plan: monitor hepatitis panel pending (6) Bloating: Code(s): R14.0 - Abdominal distension (gaseous) Status: Acute Subjective Date/time seen: 07/11/22 16:32 Interval history: no changes, tolerating diet, no nausea Review of Systems Review of Systems: All systems reviewed & are unremarkable except as noted in HPI and below Exam Const: General: comfortable HENMT: Face/Nose/Sinus: Normal nares present Eyes: Other: icteric sclerae Neck: Neck: supple Resp: Auscultation: clear to auscultation bilaterally Cardio: Rate: regular rate GI: Inspection: distended GI Palp: Yes Soft to palpation and No Guarding due to palpation present (GI) Auscultation: normal bowel sounds Skin: Other: jaundice Neuro: Speech: normal speech Motor exam (neuro): 5/5 motor strength present throughout Extrem: General: normal to inspection Psych: Affect: normal affect Objective Data Vital Signs Vital Signs: Vital Signs - 24 hr 07/10/22 20:00 07/10/22 20:20 07/10/22 22:39 Temperature 97.0 F L Pulse Rate 90 95 Respiratory Rate 16 Blood Pressure 108/75 100/63 Pulse Oximetry 94 Oxygen Delivery 07/10/22 23:23 07/11/22 00:00 07/11/22 04:00 Temperature Pulse Rate 77 80 Respiratory Rate Blood Pressure 100/63 Pulse Oximetry Oxygen Delivery 07/11/22 06:00 07/11/22 08:00 07/11/22 12:00 Temperature 98.9 F Pulse Rate 87 92 90 Respiratory Rate 18 Blood Pressure 96/65 L Pulse Oximetry 96 Oxygen Delivery 07/11/22 09:30 Temperature Pulse Rate Respiratory Rate Blood Pressure Pulse Oximetry Oxygen Delivery Room Air Intake/Output Intake/Output: Intake & Output 07/08/22 07/09/22 07/10/22 07/11/22 23:59 23:59 23:59 23:59 Intake Total 1150 4350 4970 650 Output Total 439 704 9252 Balance 850 3700 3320 650 Meds/Results Medications: Active Medications Generic Name Dose Route Start Last Admin Trade Name Freq PRN Reason Stop Dose Admin Calcium Carbonate 500 mg 07/10/22 08:00 07/11/22 08:42 Calcium Carbonate (Oscal) 500 Mg Tablet PO 500 mg BIDWM CYNDY Administration Chlordiazepoxide HCl 25 mg 07/08/22 13:56 Chlordiazepoxide (*Crx) 25 Mg Capsule PO Q6H PRN Withdrawal Hydromorphone HCl 0.5 mg 07/08/22 07:36 07/11/22 12:35 Hydromorphone Hcl Inj (*Crx) 1 Mg/Ml Syr IV PUSH 0.5 mg Q4H PRN Administration Pain Rated 7-10 Ceftriaxone Sodium/Dextrose 1 gm in 50 mls @ 100 mls/hr 07/10/22 16:00 07/10/22 16:59 Rocephin 1 Gm/D5w 50 Ml IVPB Infused Q24H CYNDY Infusion Lorazepam 2 mg 07/08/22 13:56 Lorazepam Inj (*Crx) 2 Mg/Ml Vial IV PUSH Q4H PRN Withdrawal Multivitamins Therapeutic 1 tablet 06/28
[2022-07-11 17:56] LABS: Glucose Point of Care 117 mg/dl (65-105)
[2022-07-11 23:59] LABS: Glucose Point of Care 95 mg/dl (65-105)
[2022-07-12] VITALS: PULSE 88
[2022-07-12 04:00] VITALS: PULSE 82
[2022-07-12 05:34] LABS: Glucose Point of Care 104 mg/dl (65-105)
[2022-07-12 05:37] VITALS: BP 96/62; PULSE 94; RESP 20; TEMP 36.6; O2SAT 93
[2022-07-12 06:05] LABS: Alanine Aminotransferase 54 U/L (6-35); Albumin Level 2.7 g/dL (3.5-5.1); Alkaline Phosphatase 295 U/L (38-126); Anion Gap 12 mmol/L (8-16); Aspartate Amino Transferase 151 U/L (14-36); Bilirubin,Total 17.5 mg/dL (0.2-1.3); Blood Urea Nitrogen 3 mg/dL (7-17); Carbon Dioxide 23 mmol/L (22-30); Chloride 99 mmol/L (98-107); Estimated CRCL calculation 109 ml/min; Estimated Glomerular Filt Rate > 60; Glucose 94 mg/dL (65-110); Magnesium 1.7 mg/dL (1.6-2.3); Phosphorus 1.9 mg/dL (2.5-4.5); Potassium 3.1 mmol/L (3.4-5.0); Sodium 134 mmol/L (137-145)
[2022-07-12 06:23] LABS: Hematocrit 28.2 % (37.0-47.0); Hemoglobin 9.7 g/dL (12.0-15.0); Mean Corpuscular HGB Conc 34.4 g/dl (32-36); Mean Corpuscular Hemoglobin 37.6 pg (26-34); Mean Corpuscular Volume 109.3 fl (80-100); Mean Platelet Volume 9.6 fl (7.4-10.4); Platelet Count Result 354 k/mm3 (150-375); Red Blood Count 2.58 M/mm3 (4.2-5.4); Red Cell Distribution Width 17.9 % (11.5-14.5); White Blood Count 26.5 K/mm3 (4.5-10.0)
[2022-07-12 08:00] VITALS: PULSE 105
[2022-07-12] MEDS: VITAMIN B COMPLEX CAPSULE 1 CAP PO ×2 (09:08→12:10)
[2022-07-12] MEDS: THIAMINE HCL 100 MG TABLET PO (09:08)
[2022-07-12] MEDS: POTASSIUM/PHOSPHORUS/SODIUM 1.5 GM PACKET 1 PACKET PO ×2 (09:08→12:11)
[2022-07-12] MEDS: PENTOXIFYLLINE 400 MG TABCR PO ×2 (09:08→12:10)
[2022-07-12] MEDS: MULTIVITAMINS THERAPEUTIC TAB (*BKC) 1 TABLET PO (09:08)
[2022-07-12] MEDS: CALCIUM CARBONATE (OSCAL) 500 MG TABLET PO (09:08)
[2022-07-12] MEDS: POTASSIUM CHLORIDE 20 MEQ PACKET (FOR LIQUID) 40 MEQ PO (09:08)
[2022-07-12] MEDS: MAGNESIUM OXIDE 400 MG TABLET PO (10:55)
[2022-07-12 12:10] VITALS: PULSE 122
[2022-07-12] MEDS: traMADol HCL (*CRX) 25 MG TABLET PO (12:10)
[2022-07-12 12:22] LABS: Glucose Point of Care 96 mg/dl (65-105)
[2022-07-12 12:54] VITALS: BMI 25.4
[2022-07-12 14:00] VITALS: BP 104/69; PULSE 89; RESP 18; TEMP 36.8; O2SAT 94
--- NOTE | 2022-07-12 14:40 | WPDGIPROGNO ---
Progress Note: A&P Assessment and Plan (1) Alcoholic hepatitis: Code(s): K70.10 - Alcoholic hepatitis without ascites Status: Acute Assessment and Plan: severe alcoholic hepatitis with high discriminant function on admission she is eating, denies abdominal pain and also on nutritional supplement, thiamine, mvi on trental work up to rule out other chronic liver conditions pending, most likely alcohol related liver enzymes high but stable, she can go home and will need to get established with hepatology and stop drinking altogether (2) Cirrhosis: Code(s): K74.60 - Unspecified cirrhosis of liver Status: Acute Assessment and Plan: I will schedule egd as outpatient to assess if varices, etc (3) Neutrophilic leukocytosis: Code(s): D72.9 - Disorder of white blood cells, unspecified Status: Acute Assessment and Plan: probably from etoh hepatitis treated for uti abdominal exam benign (4) Jaundice: Code(s): R17 - Unspecified jaundice Status: Acute Assessment and Plan: unchanged (5) Elevated liver enzymes: Code(s): R74.8 - Abnormal levels of other serum enzymes Status: Acute Assessment and Plan: monitor hepatitis panel pending (6) Bloating: Code(s): R14.0 - Abdominal distension (gaseous) Status: Acute Subjective Date/time seen: 07/12/22 14:40 Interval history: no complaints, denies nausea and she is eating, comfortable Review of Systems Review of Systems: All systems reviewed & are unremarkable except as noted in HPI and below Exam Const: General: comfortable HENMT: Face/Nose/Sinus: Normal nares present Eyes: Other: icteric sclerae Neck: Neck: supple Resp: Auscultation: clear to auscultation bilaterally Cardio: Rate: regular rate GI: Inspection: distended GI Palp: Yes Soft to palpation and No Guarding due to palpation present (GI) Auscultation: normal bowel sounds Skin: Other: jaundice Neuro: Speech: normal speech Motor exam (neuro): 5/5 motor strength present throughout Extrem: General: normal to inspection Psych: Affect: normal affect Objective Data Vital Signs Vital Signs: Vital Signs - 24 hr 07/11/22 16:00 07/11/22 20:14 07/11/22 20:00 Temperature 97.7 F Pulse Rate 84 97 88 Respiratory Rate 20 Blood Pressure 96/55 L Pulse Oximetry 97 Oxygen Delivery 07/11/22 19:15 07/12/22 00:00 07/12/22 04:00 Temperature Pulse Rate 88 82 Respiratory Rate Blood Pressure 96/55 L Pulse Oximetry Oxygen Delivery 07/12/22 05:37 07/12/22 08:00 07/12/22 09:10 Temperature 98 F Pulse Rate 94 105 H Respiratory Rate 20 Blood Pressure 96/62 L Pulse Oximetry 93 Oxygen Delivery Room Air 07/12/22 12:10 Temperature Pulse Rate 122 H Respiratory Rate Blood Pressure Pulse Oximetry Oxygen Delivery Intake/Output Intake/Output: Intake & Output 07/09/22 07/10/22 07/11/22 07/12/22 23:59 23:59 23:59 23:59 Intake Total 4350 4970 1940 760 Output Total 650 1650 Balance 3700 3320 1940 760 Meds/Results Medications: Active Medications Generic Name Dose Route Start Last Admin Trade Name Freq PRN Reason Stop Dose Admin Calcium Carbonate 500 mg 07/10/22 08:00 07/12/22 09:08 Calcium Carbonate (Oscal) 500 Mg Tablet PO 500 mg BIDWM CYNDY Administration Chlordiazepoxide HCl 25 mg 07/08/22 13:56 Chlordiazepoxide (*Crx) 25 Mg Capsule PO Q6H PRN Withdrawal Hydromorphone HCl 0.5 mg 07/08/22 07:36 07/11/22 19:45 Hydromorphone Hcl Inj (*Crx) 1 Mg/Ml Syr IV PUSH 0.5 mg Q4H PRN Administration Pain Rated 7-10 Ceftriaxone Sodium/Dextrose 1 gm in 50 mls @ 100 mls/hr 07/10/22 16:00 07/11/22 18:15 Rocephin 1 Gm/D5w 50 Ml IVPB Infused Q24H CYNDY Infusion Lorazepam 2 mg 07/08/22 13:56 Lorazepam Inj (*Crx) 2 Mg/Ml Vial IV PUSH Q4H PRN Withdrawal Magnesium Oxide 400 mg 06/28
--- NOTE | 2022-07-12 15:52 | P.DS_ITS ---
DS: Admitting Diagnosis Discharge Date 07/12/2022 Admitting Diagnosis Jaundice DS: Discharge Diagnosis Discharge Diagnosis (1) Alcoholic hepatitis: Code(s): K70.10 - Alcoholic hepatitis without ascites Status: Acute Assessment and Plan: Findings consistent with alcoholic hepatitis. Meld score is 19. * Started on pentoxifylline per GI recommendations which she will continue as an outpatient * She will follow-up with GI for hepatology referral (2) Elevated liver enzymes: Code(s): R74.8 - Abnormal levels of other serum enzymes Status: Acute Assessment and Plan: Patient presented with jaundice. LFTs markedly elevated on presentation with total bilirubin 16.4, AST 131, alk phos 385 * secondary to acute alcoholic hepatitis * viral hepatitis panel negative * CT of the abdomen showed cirrhosis and diffuse hepatic steatosis with small amount of ascites and portal venous hypertension * As above, she was seen in consultation by GI * LFTs were monitored and remained elevated but generally stable. * Repeat CMP in 1 week with results to GI (3) Cirrhosis: Code(s): K74.60 - Unspecified cirrhosis of liver Status: Acute Assessment and Plan: as above * Continue with GI follow-up (4) UTI (urinary tract infection): Code(s): N39.0 - Urinary tract infection, site not specified Status: Acute Assessment and Plan: urinalysis abnormal on presentation * urine culture with >100,000 E coli * Completed a 5 day course of IV ceftriaxone * blood cultures negative (5) Abnormal gallbladder ultrasound: Code(s): R93.2 - Abnormal findings on diagnostic imaging of liver and biliary tract Status: Acute Assessment and Plan: CT on presentation showed gallbladder wall thickening concerning for gallstones vs acute cholecystitis * follow-up right upper quadrant ultrasound again revealed gallbladder wall thickening with small amount of sludge but no dilation of gallbladder, lisa lithiasis, or findings to suggest acute cholecystitis * HIDA scan was completed which showed severe hepatocellular dysfunction * patient did not have signs / symptoms to suggest acute cholecystitis and was able to tolerate her diet without any issues * seen in consultation by general surgery. Findings not felt to be consistent with acute cholecystitis and no plans for further evaluation/intervention * continue low fat diet (6) Leukocytosis: Code(s): D72.829 - Elevated white blood cell count, unspecified Status: Acute Assessment and Plan: white blood cell count markedly elevated up to 26.5 * Most likely due to suspected acute alcoholic hepatitis. Less likely related to acute UTI. Pneumonia was suggested on CXR, however given clinical picture, findings most likely due to atelectasis and do not suspect pneumonia and this was not felt to contribute to leukocytosis. (7) AA (alcohol abuse): Code(s): F10.10 - Alcohol abuse, uncomplicated Status: Acute Assessment and Plan: last drink 6 days prior to presentation * CIWA protocol implemented during admission patient had no alcohol withdrawal symptoms * continue thiamine and folic acid * continued alcohol avoidance is imperative and patient was appropriately educated (8) Electrolyte disturbance: Code(s): E87.8 - Other disorders of electrolyte and fluid balance, not elsewhere classified Status: Acute Assessment and Plan: several electrolyte ab
--- NOTE | 2022-07-12 15:52 | PM.DS ---
DS: Admitting Diagnosis Discharge Date 07/12/2022 Admitting Diagnosis Jaundice DS: Discharge Diagnosis Discharge Diagnosis (1) Alcoholic hepatitis: Code(s): K70.10 - Alcoholic hepatitis without ascites Status: Acute Assessment and Plan: Findings consistent with alcoholic hepatitis. Meld score is 19. Started on pentoxifylline per GI recommendations which she will continue as an outpatient She will follow-up with GI for hepatology referral (2) Elevated liver enzymes: Code(s): R74.8 - Abnormal levels of other serum enzymes Status: Acute Assessment and Plan: Patient presented with jaundice. LFTs markedly elevated on presentation with total bilirubin 16.4, AST 131, alk phos 385 secondary to acute alcoholic hepatitis viral hepatitis panel negative CT of the abdomen showed cirrhosis and diffuse hepatic steatosis with small amount of ascites and portal venous hypertension As above, she was seen in consultation by GI LFTs were monitored and remained elevated but generally stable. Repeat CMP in 1 week with results to GI (3) Cirrhosis: Code(s): K74.60 - Unspecified cirrhosis of liver Status: Acute Assessment and Plan: as above Continue with GI follow-up (4) UTI (urinary tract infection): Code(s): N39.0 - Urinary tract infection, site not specified Status: Acute Assessment and Plan: urinalysis abnormal on presentation urine culture with >100,000 E coli Completed a 5 day course of IV ceftriaxone blood cultures negative (5) Abnormal gallbladder ultrasound: Code(s): R93.2 - Abnormal findings on diagnostic imaging of liver and biliary tract Status: Acute Assessment and Plan: CT on presentation showed gallbladder wall thickening concerning for gallstones vs acute cholecystitis follow-up right upper quadrant ultrasound again revealed gallbladder wall thickening with small amount of sludge but no dilation of gallbladder, cholelithiasis, or findings to suggest acute cholecystitis HIDA scan was completed which showed severe hepatocellular dysfunction patient did not have signs / symptoms to suggest acute cholecystitis and was able to tolerate her diet without any issues seen in consultation by general surgery. Findings not felt to be consistent with acute cholecystitis and no plans for further evaluation/intervention continue low fat diet (6) Leukocytosis: Code(s): D72.829 - Elevated white blood cell count, unspecified Status: Acute Assessment and Plan: white blood cell count markedly elevated up to 26.5 Most likely due to suspected acute alcoholic hepatitis. Less likely related to acute UTI. Pneumonia was suggested on CXR, however given clinical picture, findings most likely due to atelectasis and do not suspect pneumonia and this was not felt to contribute to leukocytosis. (7) AA (alcohol abuse): Code(s): F10.10 - Alcohol abuse, uncomplicated Status: Acute Assessment and Plan: last drink 6 days prior to presentation CIWA protocol implemented during admission patient had no alcohol withdrawal symptoms continue thiamine and folic acid continued alcohol avoidance is imperative and patient was appropriately educated (8) Electrolyte disturbance: Code(s): E87.8 - Other disorders of electrolyte and fluid balance, not elsewhere classified Status: Acute Assessment and Plan: several electrolyte abnormalities felt to be secondary to repeating syndrome Hypokalemia: Potassium was monitored and replaced. Continue p.o. potassium chloride 20 mEq b.i.d. Hypomagnesemia: Continue magnesium oxide 400 mg daily Hypocalcemia: Continue os count 500 mg b.i.d. with meals Hypophosphatemia: Continue Phos-NaK t.i.d. Continue vitamin-B complex and multivitamin Repeat CMP, magnesium, phosphorus on 07/15/2022 with results to PCP Patient evaluated
[2022-07-14 08:47] LABS: Mitochondrial (M2) Ab (IgG) <=20.0 U (<=20.0)
[2022-07-15 11:21] LABS: Ceruloplasmin 37 mg/dL (18-53)
== END 2022-07-12 16:35 | disposition home or self-care (01) | DRG 280 ==
LOC: ANHED 08:05 → ANH2MED 09:35
PROVIDERS: Internal Medicine Gastroenterology; Nurse Practitioner; Physician Assistant; Admitting Provider Internal Medicine; Emergency Provider Emergency Medicine; PCP Family Medicine; Visit Provider Family Medicine
DX: K70.11 Alcoholic hepatitis with ascites (principal); K70.31 Alcoholic cirrhosis of liver with ascites; K76.6 Portal hypertension; E83.42 Hypomagnesemia; E83.51 Hypocalcemia; E83.39 Other disorders of phosphorus metabolism; K76.0 Fatty (change of) liver, not elsewhere classified; N39.0 Urinary tract infection, site not specified; B96.20 Unspecified Escherichia coli [E. coli] as the cause of diseases classified elsewhere; F10.10 Alcohol abuse, uncomplicated; E87.6 Hypokalemia; Z79.899 Other long term (current) drug therapy
CPT/HCPCS: 36415; 71046; 74177; 76705; 78226; 80048; 80053; 81001; 82104; 82140; 82248; 82390; 82728; 82948; 83520; 83605; 83615; 83690; 83735; 84100; 84443; 85025; 85027; 85610; 86038; 87040; 87077; 87086; 87186; 93005; 96361; 96365; 96366; 96367; 96372; 96375; 99285; A9270; A9537; G0378; G0379; J0610; J0696; J1170; J2405; J2543; J3411; J3475; J3480; J7030; J7040; Q9967

== ENCOUNTER 2022-07-16 01:44 | Emergency (ER) | payer OTHER, SELFPAY ==
[2022-07-16] VITALS (69 sets, daily range): BP systolic 76–135; BP diastolic 52–108; PULSE 104–135; RESP 15–35; TEMP 36.2–36.7; O2SAT 93–99
--- NOTE | ~2022-07-16 | XR_ITS ---
EXAMINATION: XR chest 1V portable DATE: 07/16/2022 02:37 INDICATION: Jaundice. Diffuse abdominal pain. TECHNIQUE: frontal view of the chest was obtained. COMPARISON: Chest radiograph dated 07/08/2022 FINDINGS: Lung volumes are decreased with persistent opacities at the bilateral lower lung zones with appearanc e on subsequent CT of the abdomen and pelvis favoring atelectasis/scarring over pneumonia. No new air space opacities, pulmonary edema, pleural effusion or pneumothorax. The cardiomediastinal silhouette is normal. Visualized bones and soft tissues are unremarkable. IMPRESSION: 1. Mildly decreased lung volumes with persistent bibasilar atelectasis/scarring versus less likely pn eumonia. Reviewed, dictated and finalized at location A. GER OF [employer]ODUCTION IMPRESSION: 1. Mildly decreased lung volumes with persistent bibasilar atelectasis/scarring versus less likely pneumonia.
--- NOTE | ~2022-07-16 | CT_ITS ---
EXAMINATION: CT abdomen pelvis wo con DATE: 07/16/2022 02:24 INDICATION: Diffuse abdominal pain. Jaundice. TECHNIQUE: Computed tomography (CT) of the abdomen and pelvis was performed without intravenous contr ast. Automated exposure control and iterative reconstruction technique were employed. The dose-lengt h product was 727.61 mGy-cm. COMPARISON: CT and ultrasound studies dated 07/08/2022 FINDINGS: Unchanged bibasilar atelectasis. Trace bilateral pleural effusions. Mild cardiomegaly. No pericardial effusion. Small to moderate-sized sliding-type hiatal hernia. Diffuse slightly heterogeneous attenua tion of the liver with some surface nodularity consistent with likely combination of diffuse hepatic steatosis and cirrhosis. Dilated recanalized umbilical vein which opacifies with contrast on the prio r study consistent with portal venous hypertension. Spleen, pancreas, bilateral adrenal glands and le ft kidney are normal. 1.8 cm macroscopic fat attenuation right renal angiomyolipoma. Persistent wall thickening of the partially decompressed gallbladder likely related to liver disease. High attenuatio n material within the gallbladder corresponding to sludge on prior ultrasound. No bowel obstruction. A few sigmoid diverticula without adjacent inflammatory change to suggest diverticulitis. Moderate am ount of ascites scattered throughout the abdomen and pelvis. There is mesenteric, retroperitoneal and body wall edema. IMPRESSION: 1. , Cirrhosis and diffuse hepatic steatosis with stigmata of portal venous hypertension. 2. Increasing moderate amount of ascites and body wall, mesenteric and retroperitoneal edema likely r elated to liver disease. 3. Interval increase in size of a now small to moderate sliding-type hiatal hernia with interval beck ge potentially secondary to the increasing ascites. 4. Mild wall thickening of the partially decompressed gallbladder likely related to liver disease. Reviewed, dictated and finalized at location A. JOINTS SUPERVISOR IMPRESSION: 1. , Cirrhosis and diffuse hepatic steatosis with stigmata of portal venous hyp ertension. 2. Increasing moderate amount of ascites and body wall, mesenteric and retroper itoneal edema likely related to liver disease. 3. Interval increase in size of a now small to moderate sliding-type hiatal her naida with interval change potentially secondary to the increasing ascites. 4. Mild wall thickening of the partially decompressed gallbladder likely relate d to liver disease.
--- NOTE | ~2022-07-16 | XR_ITS ---
EXAMINATION: XR chest port-a-cath/central Exam Date/Time: 07/16/2022 16:15 CLINICAL CYTOGENETICIST HISTORY: CENTRAL LINE PLACEMENT. Comparison: 07/16/2022. RESULT: Lines, tubes, and devices: Right subclavian central line, terminating deep in the right atrium. Lungs and pleura: Unchanged linear and patchy bibasilar opacities. Cardiomediastinal silhouette: Stable. Other: No acute osseous or upper abdominal finding. IMPRESSION: Deep positioning of the new right subclavian central venous line, consider at least 5 cm retraction f or cavoatrial positioning. Unchanged pulmonary opacities. Reviewed, dictated and finalized at location K. ICAL CYTOGENETICIST IMPRESSION: Deep positioning of the new right subclavian central venous line, consider at l east 5 cm retraction for cavoatrial positioning. Unchanged pulmonary opacities.
[2022-07-16] MEDS: ONDANSETRON INJ 4 MG/2 ML VIAL IV PUSH ×2 (02:09→03:57)
[2022-07-16] MEDS: MORPHINE SULFATE (*CRX) 2 MG/ML INJ IV PUSH ×3 (02:10→03:58)
[2022-07-16] MEDS: PANTOPRAZOLE SODIUM IV 40 MG VIAL IV PUSH ×2 (02:10→12:53)
[2022-07-16] MEDS: SODIUM CHLORIDE 0.9% IV 500 ML 999 ML IV CONT ×2 (02:11→03:56)
--- NOTE | 2022-07-16 02:11 | PC.NURSE ---
pt in ct at this time
[2022-07-16 02:38] LABS: Mean Corpuscular HGB Conc 34.9 g/dL (32.0-36.0); Mean Corpuscular Hemoglobin 38.9 pg (27.0-31.0); Mean Corpuscular Volume 111.5 fL (78.0-102.0); Mean Platelet Volume 9.6 fl (9.2-11.8); Platelet Count Result 327 K/mm3 (150-420); Red Blood Count 1.57 M/mm3 (4.20-5.40); Red Cell Distribution Width 16.9 % (11.6-14.4)
[2022-07-16 02:43] LABS: Hemoglobin 6.1 g/dL (12.0-15.0); White Blood Count 51.8 K/mm3 (4.8-10.8)
--- NOTE | 2022-07-16 02:43 | PC.NURSE ---
LAB REPORTS HGB 6.1 AND WBC 50.1. ERP IS NOTIFIED. PT REPORTS NO RELIEF WITH PAIN MEDICATION. 2MG MORPHINE TO BE ORDERED. WILL CONTINUE TO MONITOR.
[2022-07-16 02:44] LABS: Hematocrit 17.5 % (35.0-49.0)
[2022-07-16 02:54] LABS: Alanine Aminotransferase 48 U/L (14-59); Albumin Level 1.4 g/dL (3.4-5.0); Alkaline Phosphatase 243 U/L (46-116); Anion Gap 9 mmol/L (8-16); Aspartate Amino Transferase 120 U/L (15-37); Blood Urea Nitrogen 30 mg/dL (7-18); Calcium 7.8 mg/dL (8.5-10.1); Carbon Dioxide 22 mmol/L (21-32); Chloride 98 mmol/L (98-108); Estimated CRCL calculation 63 ml/min; Estimated Glomerular Filt Rate > 60; Glucose 137 mg/dL (70-99); Lipase 48 U/L (73-393); Osmolality Calculated 276 mOsm/kg (285-295); Potassium 4.1 mmol/L (3.5-5.1); Sodium 129 mmol/L (136-145); Total Protein 4.9 g/dL (6.4-8.2)
--- NOTE | 2022-07-16 02:56 | PC.NURSE ---
BLOOD CONSENT OBTAINED, BELONGINGS LIST COMPLETED. PT IS AWARE OF PLAN OF CARE AT THIS TIME. AWAITING ERP DECISION. WILL CONTINUE TO MONITOR.
--- NOTE | 2022-07-16 03:04 | PC.NURSE ---
ERP WAS NOTIFIED AT 0250 ALL RESULTS WERE BACK, AWAITING FURTHER ORDERS AT THIS TIME.
[2022-07-16 03:09] LABS: Band Neutrophils Percent 4 % (0-6); Basophils Percent Manual 0 % (0-1); Eosinophils Percent Manual 0 % (1-6); Lymphocytes Percent Manual 6 % (18-44); Monocytes Absolute Manual 1.55 K/mm3 (0.1-0.90); Monocytes Percent Manual 3 % (3-9); Neutrophils Percent Manual 85 % (46-73); Total Cells Counted 100
[2022-07-16 03:10] LABS: Metamyelocytes Percent 2 %; Platelet Estimate Adequate (Adequate)
--- NOTE | 2022-07-16 03:11 | PC.NURSE ---
ANOTHER CALL PLACED TO ERP, HE DID NOT RESPOND
[2022-07-16 03:12] LABS: Hyperchromasia 1+ (NORMAL); Target Cells 1+ (NORMAL)
[2022-07-16 03:23] LABS: SARS-CoV-2 RNA PCR Negative (Negative)
--- NOTE | 2022-07-16 03:42 | PC.NURSE ---
0320 SPOKE WITH MILAGROS FROM [facility], NO ICU BEDS AVAILABLE AT [facility] AND THEY DO NOT HAVE A LIVER SPECIALIST 032 SPOKE WITH LINDA AT [facility] ACCESS LINE, OVER A WEEK WAIT LIST AT THIS TIME 033 SPOKE WITH GREGORY AT [facility] ACCESS LINE, TO AWAIT RETURN CALL FROM AT THIS TIME.
--- NOTE | 2022-07-16 03:56 | ED.ABDPAIN ---
HPI - Abdominal Pain General Chief Complaint: Abdominal Pain <Sohail Nieto MD - Last Filed: 07/19/22 03:31> Stated Complaint: SICKNESS <Sohail Nieto MD - Last Filed: 07/19/22 03:31> Time Seen by Provider: 07/16/22 01:46 <Sohail Nieto MD - Last Filed: 07/19/22 03:31> Source: patient and RN notes reviewed <Sohail Nieto MD - Last Filed: 07/19/22 03:31> Mode of arrival: wheelchair <Sohail Nieto MD - Last Filed: 07/19/22 03:31> Limitations: no limitations <Sohail Nieto MD - Last Filed: 07/19/22 03:31> History of Present Illness HPI narrative: abdominal distention, pain and jaundice. <Sohail Nieto MD - Last Filed: 07/19/22 03:31> MD elicited complaint: abdominal pain <Sohail Nieto MD - Last Filed: 07/19/22 03:31> Onset (ago): day(s) (3) <Sohail Nieto MD - Last Filed: 07/19/22 03:31> Pain Consistency: constant <Sohail Nieto MD - Last Filed: 07/19/22 03:31> Location: periumbilical <Sohail Nieto MD - Last Filed: 07/19/22 03:31> Severity: moderate <Sohail Nieto MD - Last Filed: 07/19/22 03:31> Pain scale (0-10): 6 <Sohail Nieto MD - Last Filed: 07/19/22 03:31> Quality: aching <Sohail Nieto MD - Last Filed: 07/19/22 03:31> Radiation: epigastric and back <Sohail Nieto MD - Last Filed: 07/19/22 03:31> Migration to: no migration <Sohail Nieto MD - Last Filed: 07/19/22 03:31> Exacerbating factors: nothing <Sohail Nieto MD - Last Filed: 07/19/22 03:31> Relieving factors: nothing <Sohail Nieto MD - Last Filed: 07/19/22 03:31> Associated symptoms: nausea and anorexia <Sohail Nieto MD - Last Filed: 07/19/22 03:31> Related Data Patient : No <Sohail Nieto MD - Last Filed: 07/19/22 03:31> Home Medications: Home Medications Medication Instructions Recorded Confirmed folic acid 1 mg tablet 1 mg PO DAILY 07/08/22 07/16/22 thiamine HCl (vitamin B1) 100 mg 100 mg PO DAILY 07/08/22 07/16/22 tablet (Vitamin B-1) <Sohail Nieto MD - Last Filed: 07/19/22 03:31> Allergies/Adverse Reactions: Allergies Allergy/AdvReac Type Severity Reaction Status Date / Time No Known Allergies Allergy Verified 07/16/22 01:56 <Sohail Nieto MD - Last Filed: 07/19/22 03:31> Review of Systems Review of Systems: All systems reviewed & are unremarkable except as noted in HPI and below <Sohail Nieto MD - Last Filed: 07/19/22 03:31> Constitutional: Constitutional: Reports no additional constitutional complaints <Sohail Nieto MD - Last Filed: 07/19/22 03:31> Eyes: Eyes: Reports no additional eye complaints <Sohail Nieto MD - Last Filed: 07/19/22 03:31> ENT: Reports system reviewed and no additional complaints, except as documented <Sohail Nieto MD - Last Filed: 07/19/22 03:31> Cardiovascular: Cardiovascular: Reports no additional cardiovascular complaints <Sohail Nieto MD - Last Filed: 07/19/22 03:31> Respiratory: Respiratory: Reports no additional respiratory complaints <Sohail Nieto MD - Last Filed: 07/19/22 03:31> Gastrointestinal: Gastrointestinal: Reports no additional gastrointestinal complaints, Reports abdominal pain and Reports nausea <Sohail Nieto MD - Last Filed: 07/19/22 03:31> Comments: distention, jaundice <Sohail Nieto MD - Last Filed: 07/19/22 03:31> Genitourinary: Genitourinary: Reports no additional female genitourinary complaints <Sohail Nieto MD - Last Filed: 07/19/22 03:31> Musculoskeletal: Musculoskeletal: Reports no additional musculoskeletal complaints <Sohail Nieto MD - Last Filed: 07/19/22 03:31> Integumentary/Breasts: Skin/Breast: Reports system reviewed and no additional complaints, except as docu <Sohail Nieto MD - Last Filed: 07/19/22 03:31> Neurologic: Reports system
[2022-07-16] MEDS: FUROSEMIDE INJ 40 MG/4 ML VIAL IV PUSH (03:58)
[2022-07-16] MEDS: LORazepam INJ (*CRX) 2 MG/ML VIAL 0.5 MG IV PUSH (04:02)
[2022-07-16] MEDS: CALCIUM CARBONATE (TUMS) 500 MG (200 MG ELEMENTAL) 1000 MG PO (04:02)
[2022-07-16] MEDS: SODIUM CHLORIDE 0.9% IV 1,000 ML 150 ML IV CONT (04:04)
--- NOTE | 2022-07-16 04:18 | PC.NURSE ---
ANGEL RETURNS CALL AND STATES TO CALL [facility], IF THEY REFUSE THEN [facility] WILL PUT HER ON A WAIT LIST. SPOKE WITH DIYA AT [facility], SHE IS GOING TO MAKE SOME CALLS AND CALL BACK. PT IS SITTING UP EATING ICE CHIPS AND TUMS AT THIS TIME. AT BEDSIDE. IVF AND IV MEDICATIONS ARE INFUSING ORDERED WITHOUT DIFFICULTY. WILL CONTINUE TO MONITOR.
--- NOTE | 2022-07-16 04:33 | PC.NURSE ---
LAB OBTAINS TYPE AND SCREEN. PT IS RESTING ON STRETCHER, AT BEDSIDE. PT CONTINUES TO BE TACHYCARDIC AND HYPOTENSIVE. NAD NOTED. PT REPORTS PAIN REMAINS, HOWEVER HAS IMPROVED. IVF INFUSING ORDERED WITHOUT DIFFICULTY. WILL CONTINUE TO MONITOR.
--- NOTE | 2022-07-16 04:52 | PC.NURSE ---
PT REPORTS SHE NOTICED [facility] TODAY.
--- NOTE | 2022-07-16 05:36 | PC.NURSE ---
[facility] NOTIFIED AT THIS TIME PT IS PLACED ON AN APPROXIMATE 3 DAY WAIT LIST. TO NOTIFY IF PT NEEDS INTUBATION OR MEDICATED DRIPS.
--- NOTE | 2022-07-16 05:40 | PC.NURSE ---
PT AND UPDATED AT THIS TIME. BLOOD TRANSFUSING ORDERED WITHOUT DIFFICULTY.
[2022-07-16] MEDS: SODIUM CHLORIDE 0.9% IV 250 ML 30 ML IV CONT ×2 (05:44→15:02)
--- NOTE | 2022-07-16 06:01 | PC.NURSE ---
SHOL[facility] WITH [facility] NOTIFIED, SHE IS GOING TO CHECK BED STATUS AND RETURN CALL IF ANY BEDS ARE AVAILABLE. SHE HAS PLACED PT ON WAIT LIST. WILL CONTINUE TO MONITOR. BLOOD TRANSFUSING ORDERED WITHOUT DIFFICULTY. REMAINS AT BEDSIDE, AWARE OF PLAN OF CARE. PT IS RESTLESS, CONTINUES TO ROLL FROM SIDE TO SIDE WHILE SLEEPING AND TALKING IN HER SLEEP, REPORTS THIS IS NORMAL BEHAVIOR FOR HER. WILL CONTINUE TO MONITOR.
--- NOTE | 2022-07-16 06:11 | PC.NURSE ---
ARM BOARD PLACED ON PT AT THIS TIME DUE TO HER RESTLESSNESS, SHE CONTINUES TO OCCLUDE IV BLOOD AND DRIPS. PT TOLERATED WELL, DRIPS ARE NOW INFUSING WITHOUT DIFFICULTY.
[2022-07-16 07:11] LABS: Reflex Lactic Acid Yes or No Add Lactic
[2022-07-16] MEDS: DEXTROSE 10% 250 ML 50 ML IV CONT ×2 (07:26→13:09)
[2022-07-16 08:04] LABS: Hematocrit 22.5 % (35.0-49.0); Hemoglobin 7.8 g/dL (12.0-15.0); Mean Corpuscular HGB Conc 34.7 g/dL (32.0-36.0); Mean Corpuscular Hemoglobin 36.8 pg (27.0-31.0); Mean Corpuscular Volume 106.1 fL (78.0-102.0); Mean Platelet Volume 9.8 fl (9.2-11.8); Platelet Count Result 335 K/mm3 (150-420); Red Blood Count 2.12 M/mm3 (4.20-5.40); Red Cell Distribution Width 17.5 % (11.6-14.4)
[2022-07-16 08:10] LABS: White Blood Count 62.1 K/mm3 (4.8-10.8)
[2022-07-16 08:14] LABS: Appearance Urine Cloudy (Clear); Bilirubin Urine 3+ (Negative); Blood Urine 1+ (Negative); Glucose Urine UA Trace (Negative); Ketones Urine Negative (Negative); Leukocyte Esterase Ur Trace (Negative); Nitrate Urine Negative (Negative); Protein Urine Negative (Negative); Urobilinogen Urine 0.2 mg/dL (0.2-1.0)
[2022-07-16 08:21] LABS: Add Urine Microscopic? YES; Bacteria Urine 1+ /hpf; Color Urine Dark Orange (Yellow); Mucus Urine Few /lpf; RBC Urine 0-2 /hpf (0-2); Squamous Epithelial Cell Urine Moderate /hpf (Few); WBC Urine 0-3 /hpf (0-3)
[2022-07-16 08:22] LABS: Lactic Acid 2.7 mmol/L (0.4-2.0)
[2022-07-16 08:31] LABS: Alanine Aminotransferase 54 U/L (14-59); Albumin Level 1.5 g/dL (3.4-5.0); Alkaline Phosphatase 259 U/L (46-116); Anion Gap 10 mmol/L (8-16); Aspartate Amino Transferase 138 U/L (15-37); Bilirubin,Total 18.7 mg/dL (0.00-1.00); Blood Urea Nitrogen 34 mg/dL (7-18); Calcium 7.8 mg/dL (8.5-10.1); Carbon Dioxide 20 mmol/L (21-32); Chloride 99 mmol/L (98-108); Estimated CRCL calculation 54 ml/min; Estimated Glomerular Filt Rate > 60; Glucose 133 mg/dL (70-99); Osmolality Calculated 277 mOsm/kg (285-295); Potassium 4.5 mmol/L (3.5-5.1); Sodium 129 mmol/L (136-145); Total Protein 5.3 g/dL (6.4-8.2)
[2022-07-16 08:33] LABS: Band Neutrophils Percent 2 % (0-6); Basophils Percent Manual 0 % (0-1); Eosinophils Absolute Manual 0.62 K/mm3 (0.02-0.5); Eosinophils Percent Manual 1 % (1-6); Lymphocytes Absolute Manual 6.21 K/mm3 (1.1-4.5); Lymphocytes Percent Manual 10 % (18-44); Metamyelocytes Percent 2 %; Monocytes Absolute Manual 1.86 K/mm3 (0.1-0.90); Monocytes Percent Manual 3 % (3-9); Myelocytes Percent 4 %; Neutrophils Absolute Manual 49.68 K/mm3 (1.7-7.2); Neutrophils Percent Manual 78 % (46-73); Nucleated Red Blood Cells 1 %; Platelet Estimate Adequate (Adequate); Total Cells Counted 100
[2022-07-16 08:35] LABS: Ammonia 51 umol/L (11-32)
[2022-07-16 11:03] LABS: Occult Blood Positive (Negative)
[2022-07-16] MEDS: PHYTONADIONE ADULT INJ 10 MG in DEXTROSE 5% IN WATER 50 ML 100 MG IVPB (12:57)
[2022-07-16] MEDS: ALBUMIN HUMAN 25% 25 GM/100 ML 100 ML IVPB (13:27)
[2022-07-16 14:25] LABS: Basophils Absolute Auto 0.05 K/mm3 (0.00-0.10); Basophils Percent Auto 0.1 % (0.0-1.0); Eosinophils Absolute Auto 0.57 K/mm3 (0.02-0.50); Eosinophils Percent Auto 0.9 % (1.0-6.0); Immature Granulocyte Absolute 3.95 K/mm3 (0.00-0.00); Immature Granulocyte Percent A 6.4 % (0.0-0.0); Lymphocytes Absolute Auto 4.58 K/mm3 (1.10-4.50); Lymphocytes Percent Auto 7.4 % (18.0-42.0); Mean Corpuscular HGB Conc 34.3 g/dL (32.0-36.0); Mean Platelet Volume 10.1 fl (9.2-11.8); Monocytes Absolute Auto 3.97 K/mm3 (0.10-0.90); Monocytes Percent Auto 6.5 % (2.0-11.0); Neutrophils Absolute Auto 48.4 K/mm3 (1.7-7.2); Neutrophils Percent Auto 78.7 % (50.0-70.0); Nucleated Red Blood Cells Perc 0.3 % (0-0.0); Platelet Count Result 291 K/mm3 (150-420); Red Blood Count 1.62 M/mm3 (4.20-5.40); Red Cell Distribution Width 19.7 % (11.6-14.4)
[2022-07-16 14:33] LABS: Hematocrit 17.5 % (35.0-49.0); White Blood Count 61.5 K/mm3 (4.8-10.8)
[2022-07-16 14:41] LABS: Alanine Aminotransferase 50 U/L (14-59); Albumin Level 1.6 g/dL (3.4-5.0); Alkaline Phosphatase 218 U/L (46-116); Ammonia 55 umol/L (11-32); Anion Gap 11 mmol/L (8-16); Aspartate Amino Transferase 130 U/L (15-37); Bilirubin,Total 16.7 mg/dL (0.00-1.00); Blood Urea Nitrogen 40 mg/dL (7-18); Calcium 7.5 mg/dL (8.5-10.1); Carbon Dioxide 19 mmol/L (21-32); Chloride 100 mmol/L (98-108); Estimated CRCL calculation 38 ml/min; Estimated Glomerular Filt Rate 45; Glucose 160 mg/dL (70-99); Osmolality Calculated 282 mOsm/kg (285-295); Potassium 4.5 mmol/L (3.5-5.1); Sodium 130 mmol/L (136-145); Total Protein 4.8 g/dL (6.4-8.2)
--- NOTE | 2022-07-16 15:25 | PC.NURSE ---
at 1500 erp spoke with [facility] provider. no beds available at [place] at this time. at 1505 erp spoke with [facility] provider. will call back if bed opens up
--- NOTE | 2022-07-16 16:35 | PC.NURSE ---
1610-triple lumen central line inserted on right per erp. rbc unit and maintenance fluids moved to central line and left a/c saline loc flushed with normal saline. [facility] staff at bedside and report given.
--- NOTE | 2022-07-16 16:40 | PC.NURSE ---
1620-pt had bm of large amt of dk red blood clots. pt cleaned and moved to transport stretcher. erp at bedside.
[2022-07-16] MEDS: LIDOCAINE HCL 1% LOCAL INJ 10 ML VIAL 20 ML (16:48)
== END 2022-07-16 16:46 | disposition short-term general hospital (02) ==
PROVIDERS: Internal Medicine Critical Care Medicine; Emergency Provider Emergency Medicine; PCP Family Medicine
DX: K74.60 Unspecified cirrhosis of liver (principal); K76.6 Portal hypertension; D72.829 Elevated white blood cell count, unspecified; K92.2 Gastrointestinal hemorrhage, unspecified; D68.9 Coagulation defect, unspecified; K76.82 Hepatic encephalopathy; Z20.822 Contact with and (suspected) exposure to COVID-19
CPT/HCPCS: 36415; 36430; 36556; 71045; 74176; 80053; 81001; 82140; 83605; 83690; 85025; 86850; 86900; 86901; 86920; 87040; 96361; 96365; 96366; 96367; 96368; 96375; 96376; 99291; A9270; C9113; J0696; J1940; J2060; J2270; J2370; J2405; J3430; J7030; J7040; J7050; J7060; P9016; P9017; P9047; U0003; U0005